=== PATIENT | female | born 1970 | race American Indian/Alaskan Native ===

== ENCOUNTER 2016-12-07 17:26 | Observation (INO) | payer MEDICAID, OTHER ==
[2016-12-07 17:27] VITALS: BMI 64.0
--- NOTE | 2016-12-07 18:14 | C.PDOC ---
History Of Present Illness 46 year old patient, with a past medical history of hypertension, unknown cardiac disease. and hyperlipidemia, presents to the ED complaining of intermittent chest pain and pressure moving across her chest. Patient also complains of associated symptoms of headache and dizziness. She notes she had similar symptoms about a year ago. Patient denies any fever, nausea, vomiting, or shortness of breath. Time Seen by Provider: 12/07/16 17:43 Chief Complaint (Nursing): Chest Pain History Per: Patient History/Exam Limitations: no limitations Onset/Duration Of Symptoms: Intermittent Episodes Current Symptoms Are (Timing): Still Present Context: Other Severity: Mild Pain Scale Rating Of: 3 Quality: Pressure, "Pain" Alleviating Factors: None Recent travel outside of the [place]: No Past Medical History Reviewed: Historical Data, Nursing Documentation, Vital Signs Vital Signs: Last Vital Signs Temp 98.3 F 12/07/16 17:35 Pulse 91 H 12/07/16 18:00 Resp 20 12/07/16 17:35 BP 159/84 H 12/07/16 17:35 Pulse Ox 98 12/07/16 18:19 - Medical History PMH: HTN, Hyperlipidemia Surgical History: Cholecystectomy - [facility] Procedures ASSISTANCE WITH RESPIRATORY VENTILATION, 24-96 HRS, CPAP (04/02/16) EXCISION OF LEFT FOOT SKIN, EXTERNAL APPROACH (04/02/16) Family History: States: Unknown Family Hx - Social History Hx Tobacco Use: No Hx Alcohol Use: No Hx Substance Use: No - Immunization History Hx Tetanus Toxoid Vaccination: Yes Hx Influenza Vaccination: Yes Hx Pneumococcal Vaccination: Yes Review Of Systems Except As Marked, All Systems Reviewed And Found Negative. Constitutional: Negative for: Fever Cardiovascular: Positive for: Chest Pain Respiratory: Negative for: Shortness of Breath Gastrointestinal: Negative for: Nausea, Vomiting Neurological: Positive for: Headache, Dizziness Physical Exam - Physical Exam Appears: Non-toxic, No Acute Distress Skin: Warm, Dry Head: Atraumatic, Normacephalic Eye(s): bilateral: Normal Inspection, PERRL, EOMI Oral Mucosa: Moist Neck: Normal ROM, Supple Chest: Symmetrical Cardiovascular: Rhythm Regular Respiratory: Normal Breath Sounds, No Rales, No Rhonchi, No Wheezing Gastrointestinal/Abdominal: Soft, No Tenderness, Other (obese) Back: Normal Inspection, No CVA Tenderness Extremity: Normal ROM, No Calf Tenderness, No Deformity, Swelling, Other ( severe lymphodema in bilateral legs(baseline)) Neurological/Psych: Oriented x3, Normal Motor, Normal Sensation ED Course And Treatment - Laboratory Results Result Diagrams: 12/07/16 19:30 12/07/16 18:40 Lab Interpretation: No Acute Changes ECG: Interpreted By Me, Viewed By Me ECG Rhythm: Sinus Rhythm ECG Interpretation: Normal, No Acute Changes Rate From EC (bpm) O2 Sat by Pulse Oximetry: 98 (room air) Pulse Ox Interpretation: Normal - Radiology CXR: Interpreted by Me CXR Interpretation: Yes: No Acute Disease (no change from 08/2016) Reevaluation Time: 19:51 Reassessment Condition: Improved (Patient remains comfortable in ED.) - Physician Consult Information Time Consulting Physician Contacted: 19:51 Physician Contacted: Emma Pierce Outcome Of Conversation: Patient with multiple cardiac risk factors to be admitted for chest pain observation. Medical Decision Making Medical Decision Making: Plan: * EKG * Labs * Chest x-ray Disposition - Disposition Disposition: HOSPITALIZED Disposition Time: 19:53 Condition: STABLE - POA Present On Arrival: None - Clinical Impression Clinical Impression: Chest pain - Scribe Statement The provider has reviewed the documentation as recorded by the Scribe Hollie Vasquez Provider Attestation: All medical record entries made by the Scribe were at my direction and personally dictated by me. I have reviewed the chart and agree that the record accurately reflects my personal performance of the history, physical exam, medical decision making, and the department course for this patient. I have also personally directed, reviewed, and agree with the discharge instructions and disposition.
[2016-12-07 19:05] LABS: CHLORIDE 107 mmol/L (98-107); POTASSIUM 3.9 mmol/L (3.6-5.2); SODIUM 137 mmol/L (132-148)
[2016-12-07 19:07] LABS: BILIRUBIN,TOTAL 0.6 mg/dL (0.2-1.3); CARBON DIOXIDE 23 mmol/L (22-30); GFR AFRICAN-AMERICAN > 60
[2016-12-07 19:08] LABS: ALB/GLOB RATIO 0.8 (1.0-2.1); ALKALINE PHOSPHATASE 111 U/L (38-126); ALT/SGPT 15 U/L (9-52); AST/SGOT 25 U/L (14-36); BLOOD UREA NITROGEN 11 mg/dL (7-17); CALCIUM 8.5 mg/dl (8.6-10.4); GLUCOSE,RANDOM 97 mg/dL (65-105); TOTAL PROTEIN 7.6 g/dL (6.3-8.3)
[2016-12-07 19:37] LABS: BASO % 0.4 % (0.0-2.0); EOS # 0.3 K/uL (0.0-0.7); EOS % 3.3 % (0.0-4.0); LYMPH # 2.4 K/uL (1.0-4.3); LYMPH % 29.5 % (20.0-40.0); MEAN CELL VOLUME 80.2 fL (81.0-99.0); MEAN CORPUSCULAR HEMOGLOBIN 25.4 pg (27.0-31.0); MEAN CORPUSCULAR HGB CONC 31.6 g/dL (33.0-37.0); MEAN PLATELET VOLUME 7.8 fL (7.2-11.7); MONO # 0.7 K/uL (0.0-0.8); MONO % 8.5 % (0.0-10.0); NRBC % 0.1 % (0.0-2.0); RED CELL DISTRIBUTION WIDTH 15.1 % (11.5-14.5)
[2016-12-08] MEDS: (Novolog) Insulin Aspart, Recombinant 100 u/ml 10 ml vial SC SCH ×4 (07:48→22:53)
--- NOTE | 2016-12-08 09:40 | RAD ---
PROCEDURE: CHEST RADIOGRAPH, 1 VIEW HISTORY: chest pain COMPARISON: 08/28/2016 FINDINGS: LUNGS: Mild venous congestion. Right hilar prominence. Prominent bibasilar breast shadows. PLEURA: No pneumothorax or pleural fluid seen. CARDIOVASCULAR: Normal. OSSEOUS STRUCTURES: No significant abnormalities. VISUALIZED UPPER ABDOMEN: Normal. OTHER FINDINGS: None. IMPRESSION: Mild venous congestion. Right hilar prominence. Prominent bibasilar breast shadows.
[2016-12-08] MEDS: Enoxaparin 40 mg Syringe SC SCH (10:11)
--- NOTE | 2016-12-08 22:45 | CP.PCM.CON ---
History of Present Illness - History of Present Illness History of Present Illness: 46 y/o woman who presents with CP > off and on for 6months to a year recently worsening > Described as aching, pinching, stabbing > No chest heaviness or diaphoresis > off and on quality lasting seconds at a time > Located in central upper chest, L. upper chest > No fevers, chills, GI/ complaints Overall she is morbidly obese: limited in activity do to same, is independent with ADLs and attends few hours of adult day care M-F PMHX: Morbid obesity, chronic LE lymphedema B/L, ALYSA, HTN, DM, LIPIDS Cardiac Hx: Patient s/p Cath Jun 2015 Right Radial Access/6F Normal Coronaries Normal EF of 75%, EDP 18 PSHX: Gall bladder SOCHX: No Tobacco, ETOH or substance abuse ROS: Chronic LE intermittent edema chronic recurrent chest pains Obesity associated dyspnea All 12 systems reviewed and negative except for that mentioned in HPI and above Review of Systems - Constitutional Constitutional: As Per HPI Past Patient History - Infectious Disease Hx of Infectious Diseases: None - Past Medical History & Family History Past Medical History?: Yes - Past Social History Smoking Status: Never Smoked - CARDIAC Hx Cardiac Disorders: Yes Hx Hypertension: Yes - PULMONARY Hx Respiratory Disorders: No - NEUROLOGICAL Hx Neurological Disorder: Yes Hx Dizziness: Yes - HEENT Hx HEENT Problems: No - RENAL Hx Chronic Kidney Disease: No - ENDOCRINE/METABOLIC Hx Endocrine Disorders: Yes Hx Diabetes Mellitus Type 2: Yes - HEMATOLOGICAL/ONCOLOGICAL Hx Blood Disorders: No - INTEGUMENTARY Hx Dermatological Problems: Yes Hx Cellulitis: Yes - MUSCULOSKELETAL/RHEUMATOLOGICAL Hx Musculoskeletal Disorders: Yes Hx Back Pain: Yes Hx Falls: No Other/Comment: Bilateral leg edema - GASTROINTESTINAL Hx Gastrointestinal Disorders: No - GENITOURINARY/GYNECOLOGICAL Hx Genitourinary Disorders: No - PSYCHIATRIC Hx Substance Use: No - SURGICAL HISTORY Hx Cholecystectomy: Yes - ANESTHESIA Hx Anesthesia: Yes Hx Anesthesia Reactions: No Hx Malignant Hyperthermia: No Has any member of the family had a problem w/ anesthesia?: No Meds Allergies/Adverse Reactions: Allergies Allergy/AdvReac Type Severity Reaction Status Date / Time No Known Allergies Allergy Verified 12/07/16 17:43 - Medications Medications: Current Medications Aspirin (Aspirin Chewable) 81 mg PO DAILY [facility] Last Admin: 12/08/16 10:11 Dose: 81 mg Carvedilol (Coreg) 25 mg PO DAILY [facility] Last Admin: 12/08/16 10:12 Dose: 25 mg Enoxaparin Sodium (Lovenox) 40 mg SC DAILY [facility] Last Admin: 12/08/16 10:11 Dose: 40 mg Furosemide (Lasix) 40 mg PO DAILY [facility] Last Admin: 12/08/16 10:11 Dose: 40 mg Hydralazine HCl (Apresoline) 50 mg PO DAILY [facility] Last Admin: 12/08/16 10:11 Dose: 50 mg Insulin Aspart (Novolog) 1 unit SC [facility] PRN Reason: Protocol Last Admin: 12/08/16 17:03 Dose: Not Given Isosorbide Mononitrate (Imdur) 30 mg PO DAILY [facility] Lisinopril (Zestril) 20 mg PO DAILY [facility] Last Admin: 12/08/16 10:12 Dose: 20 mg Metformin HCl (Glucophage) 500 mg PO BID [facility] Last Admin: 12/08/16 17:40 Dose: 500 mg Pneumococcal Polyvalent Vaccine (Pneumovax 23 Vaccine) 0.5 ml IM .ONCE ONE Stop: 12/11/16 14:01 Physical Exam - Constitutional Appears: No Acute Distress, Older Than Stated Age, Other (morbidly obese) - Head Exam Head Exam: ATRAUMATIC, NORMAL INSPECTION, NORMOCEPHALIC - Eye Exam Eye Exam: EOMI, Normal appearance, PERRL - ENT Exam ENT Exam: Mucous Membranes Moist - Neck Exam Neck exam: Positive for: Normal Inspection - Respiratory Exam Respiratory Exam: Clear to Auscultation Bilateral. absent: Rales, Rhonchi, Wheezes - Cardiovascular Exam Cardiovascular Exam: REGULAR RHYTHM, +S1, +S2. absent: Diastolic murmur, Gallop , JVD, +S4, Systolic Murmur - GI/Abdominal Exam GI & Abdominal Exam: Soft. absent: Guarding - Extremities Exam Additional comments: Chronic venous stasis changes, lymhedema B/L LE's - Neurological Exam Neurological exam: Alert, Oriented x3 - Psychiatric Exam Psychiatric exam: Normal Affect, Normal Mood Results - Vital Signs Recent Vital Signs: Last Vital Signs Temp 98.5 F 12/08/16 17:10 Pulse 87 12/08/16 17:10 Resp 20 12/08/16 17:10 BP 157/85 H 12/08/16 17:10 Pulse Ox 99 12/08/16 17:10 - Labs Result Diagrams: 12/07/16 19:30 12/07/16 18:40 Labs: Laboratory Results - last 24 hr 12/08/16 12/08/16 12/08/16 03:01 06:26 11:27 POC Glucose (mg/dL) 94 Total Creatine Kinase 79 88 CK-MB (Mass) 0.23 0.27 Troponin I, Quant 0.0230 < 0.0120 12/08/16 12/08/16 12/08/16 11:48 16:44 21:55 POC Glucose (mg/dL) 101 92 89 Total Creatine Kinase CK-MB (Mass) Troponin I, Quant - EKG Data EKG Interpreted by: Other (No acute ischemic changes) EKG shows normal: Sinus rhythm - Imaging and Cardiology Chest x-ray Status: Image reviewed by me (No congestion or infiltrates) Assessment & Plan - Assessment and Plan (Free Text) Assessment: Morbidly obese woman with secondary HTN, BDLN DM, venous stasis, ALYSA and lymphedema presetns with chest pain. * I have reviewed the EKG which shows no ischenic changes * I have reviewed the echo which was done 12/08/16: Showing normal LVEF and wall motion, mild MR, TR and grade 2 diastolic dysfunction * She has had normal cardiac cath 1 year ago * current admission she has ruled out for any ACS * Labs are overall wnl except for mild reduced MCV, 1+ hematuria * I feel her sx's are musculoskeletal and non-cardiac * BP is acceptable although on 3 medications * Her LE edema is in part venous stasis and lymphedema: suggest wound care eval and ongoing follow-up with podiatry 1. Continue Medications: and DVT prophylaxis 2. Nightly CPAP 3. No further cardiac work-up is planned. 4. See med suggestions below. No Known Allergies Allergy (Verified 12/07/16 17:43) Aspirin (Aspirin Chewable) 81 mg PO DAILY [facility] Last Admin: 12/08/16 10:11 Dose: 81 mg Carvedilol (Coreg) 25 mg PO DAILY [facility] Last Admin: 12/08/16 10:12 Dose: 25 mg Enoxaparin Sodium (Lovenox) 40 mg SC DAILY [facility] Last Admin: 12/08/16 10:11 Dose: 40 mg Furosemide (Lasix) 40 mg PO DAILY [facility] Last Admin: 12/08/16 10:11 Dose: 40 mg -------------------> Suggest increase to 60 BID and monitor lytes. Hydralazine HCl (Apresoline) 50 mg PO DAILY [facility]--------------------> Suggest BID dosing Last Admin: 12/08/16 10:11 Dose: 50 mg Isosorbide Mononitrate (Imdur) 30 mg PO DAILY [facility] Lisinopril (Zestril) 20 mg PO DAILY [facility] Last Admin: 12/08/16 10:12 Dose: 20 mg D?C planning from cardiac standpoint.
--- NOTE | 2016-12-08 23:17 | CARD ---
APPROVED REPORT EKG Measurement Heart [id number] <Conclusion> Normal sinus rhythm Possible Left atrial enlargement Borderline ECG
--- NOTE | 2016-12-08 23:39 | HP ---
HISTORY OF PRESENT ILLNESS: This is a 46-year-old morbidly obese - Citizen Of [place] female with history of severe lymphedema with bilateral lower extremity elephantiasis. Presented to Emergency Room with symptoms of chest pain that have been intermittent for 2 days prior to this admission. The patient was evaluated in the Emergency Room and admitted to telemetry floor for further management. The patient admits that she had previous similar symptoms, for which she had cardiac catheterization through the radial artery more than [address] Velez. The patient denied to have any symptoms associated with her chest pain. ALLERGIES: No known allergy. HOME MEDICATIONS: Imdur 120 mg daily, carvedilol 6.25 mg twice a day, Lasix 40 mg daily, lisinopril 20 mg daily, metformin 500 mg twice a day, hydralazine 50 mg twice a day. SOCIAL HISTORY: No history of smoking, ETOH or substance abuse. FAMILY HISTORY: Noncontributory. PAST MEDICAL HISTORY: Again, hypertension, type 2 diabetes mellitus, severe lymphedema of bilateral lower extremities. ASSESSMENT: 1. Chest pain, rule out myocardial infarction. 2. Hypertension. 3. Type 2 diabetes mellitus. PLAN: Continue current medications and management . The patient is to follow recommendation of the calender worker helper and we will resume patient's home medications. Emma Pierce MD cc: [phone] TT: 12/08/2016 23:38:13 ln MTDD
--- NOTE | 2016-12-09 01:29 | CARD ---
APPROVED REPORT EXAM: Two-dimensional and M-mode echocardiogram with Doppler and color Doppler. Other Information Quality : FairRhythm : NSR INDICATION Chest Pain RISK FACTORS Hypertension Obesity Diabetes M-Mode DIMENSIONS RVDd1.91 (2.1-3.2cm)Left Atrium (MM)4.06 (2.5-4.0cm) IVSd0.86 (0.7-1.1cm)Aortic Root2.81 (2.2-3.7cm) LVDd4.76 (4.0-5.6cm)Aortic Cusp Exc.1.76 (1.5-2.0cm) PWd0.94 (0.7-1.1cm)FS (%) 28 % LVDs3.44 (2.0-3.8cm)LVEF (%)54 (>50%) Aortic Valve AoV Peak Btfzdnni435.1cm/Daniel Peak GR.9mmHg Mitral Valve MV E Flgphehe66.6cm/sMV A Uxiikyow99.5cm/sE/A ratio1.0 TDI E/Lateral E'0.0E/Medial E'0.0 Tricuspid Valve TR Peak Ibxyjmig314dr/sTR Peak Gr.[id number] LEFT VENTRICLE The left ventricle is normal size. There is normal left ventricular wall thickness. Left ventricle systolic function is low normal with Ejection Fraction of 50-55%. There is normal LV segmental wall motion. The left ventricular diastolic function is normal. No left ventricle thrombus noted on this study. RIGHT VENTRICLE The right ventricle is normal size. The right ventricular systolic function is normal. ATRIA The left atrium is borderline dilated. The right atrium size is normal. AORTIC VALVE The aortic valve is mildlymildly thickened. The aortic valve is trileaflet. No aortic regurgitation is present. There is no aortic valvular stenosis. There is no aortic valvular vegetation. MITRAL VALVE The mitral valve is normal in structure. There is no evidence of mitral valve prolapse. There is no mitral valve stenosis. Mitral regurgitation is mild. TRICUSPID VALVE The tricuspid valve is normal in structure. There is trace to mild tricuspid regurgitation. Right ventricular systolic pressure is estimated at less than 30 mmHg. There is no pulmonary hypertension. There is no tricuspid valve prolapse or vegetation. PULMONIC VALVE The pulmonic valve is not well visualized. There is no pulmonic valvular regurgitation. GREAT VESSELS The aortic root is normal in size. The IVC is normal in size and collapses >50% with inspiration. PERICARDIAL EFFUSION There is no pericardial effusion. There is no pleural effusion. <Conclusion> The left ventricle is normal size. Left ventricle systolic function is low normal with Ejection Fraction of 50-55%. The left ventricular diastolic function is normal. The right ventricle is normal size. The right ventricular systolic function is normal. The left atrium is borderline dilated. The right atrium size is normal. Mitral regurgitation is mild. There is trace to mild tricuspid regurgitation.
[2016-12-09] MEDS: (Novolog) Insulin Aspart, Recombinant 100 u/ml 10 ml vial SC SCH ×2 (08:30→11:45)
[2016-12-09 08:32] VITALS: PULSE 76; RESP 18; TEMP 98.1; O2SAT 100
[2016-12-09] MEDS: Enoxaparin 40 mg Syringe SC SCH (10:29)
[2016-12-09 10:33] VITALS: BP 112/64
--- NOTE | 2016-12-09 17:03 | CP.PCM.PN ---
Subjective - Date & Time of Evaluation Date of Evaluation: 12/09/16 Time of Evaluation: 11:00 - Subjective Subjective: Alert, awake, obese, NAD. Objective - Vital Signs/Intake and Output Vital Signs (last 24 hours): Temp Pulse Resp BP Pulse Ox 98.1 F 76 18 112/64 100 12/09/16 07:30 12/09/16 07:30 12/09/16 07:30 12/09/16 10:30 12/09/16 07:30 - Medications Medications: Current Medications Aspirin (Aspirin Chewable) 81 mg PO DAILY [facility] Last Admin: 12/09/16 10:30 Dose: 81 mg Carvedilol (Coreg) 25 mg PO DAILY [facility] Last Admin: 12/09/16 10:30 Dose: 25 mg Enoxaparin Sodium (Lovenox) 40 mg SC DAILY [facility] Last Admin: 12/09/16 10:29 Dose: 40 mg Furosemide (Lasix) 40 mg PO Q12H [facility] Hydralazine HCl (Apresoline) 50 mg PO Q12 [facility] Last Admin: 12/09/16 12:30 Dose: Not Given Insulin Aspart (Novolog) 1 unit SC [facility] PRN Reason: Protocol Last Admin: 12/09/16 11:45 Dose: Not Given Isosorbide Mononitrate (Imdur) 30 mg PO DAILY [facility] Last Admin: 12/09/16 10:00 Dose: Not Given Lisinopril (Zestril) 20 mg PO DAILY [facility] Last Admin: 12/09/16 10:30 Dose: 20 mg Metformin HCl (Glucophage) 500 mg PO BID [facility] Last Admin: 12/09/16 10:29 Dose: 500 mg Pneumococcal Polyvalent Vaccine (Pneumovax 23 Vaccine) 0.5 ml IM .ONCE ONE Stop: 12/11/16 14:01 Assessment and Plan - Assessment and Plan (Free Text) Assessment: Patient is seen and examined. Alert and orientedx3, NAD. Denies sob or chest pains. Cleared by DR Cash, italian teacher, incresed hydralazine and lasix to BID. all meds refilled for 1 month supply. D/W DR Pierce, discharge plan for today, advised follow up with PMD IN 1 week.
--- NOTE | 2016-12-09 20:55 | DS ---
REASON FOR ADMISSION: This is a 46-year-old female with a history of multiple medic al problems including morbid who was admitted for chest pain. COURSE OF HOSPITALIZATION: The patient was admitted to the telemetry floor and myocardial infarction was ruled out by negative cardiac enzymes. The patient had a cardiology consultation done by Dr. Nikhil todd. The patient had cardiac catheterization done before by Dr. Vanegas's group and the patient was cleared for discharge by cardiology to continue her current medications. ASSESSMENT: 1. Noncardiac chest pain, likely musculoskeletal. 2. Hypertension. 3. Type 2 diabetes mellitus. PLAN: Follow up with cardiology, Dr. Vanegas, as well as primary care physician. Summer Aniya Pierce MD cc: [phone] TT: 12/09/2016 20:54:45 geoffrey
[2016-12-11] MEDS ORDERED: Pneumococcal 23-Valent Vaccine IM ONE (14:00)
== END 2016-12-09 16:00 | disposition home or self-care (01) ==
LOC: C.ER 17:26 → C.9E 19:53 → C.6T 22:07
PROVIDERS: ADMIT Internal Medicine; ATTEND Internal Medicine
DX: R07.9 Chest pain, unspecified (principal); I10 Essential (primary) hypertension; E78.5 Hyperlipidemia, unspecified; E11.9 Type 2 diabetes mellitus without complications; Z79.84 Long term (current) use of oral hypoglycemic drugs
CPT/HCPCS: 36415; 71010; 80053; 82948; 83880; 84484; 85025; 85378; 93005; 93306; 99285; G0378; J1650

== ENCOUNTER 2017-01-15 11:07 | Inpatient (IN) | payer MEDICAID ==
[2017-01-15 11:07] VITALS: BMI 64.0
--- NOTE | 2017-01-15 11:28 | C.PDOC ---
History Of Present Illness 46-YEAR-OLD FEMALE, PRESENTS TO THE EMERGENCY DEPARTMENT WITH COMPLAINTS OF SWELLING AND REDNESS TO RIGHT LEG X 3 DAYS. NO TRAUMA, FEVER, NV CHILLS. RECENT DC BUT PT NONCOMPLIANT W MEDS PMHX: Morbid obesity, chronic LE lymphedema B/L, ALYSA, HTN, DM, LIPIDS Cardiac Hx: Patient s/p Cath Jun 2015 Right Radial Access/6F Normal Coronaries Normal EF of 75%, EDP 18 PSHX: Gall bladder EXAM NAD NONTOXIC SKIN +CELLULITIS R INNER LOWER THIGH W LOCAL INDURATION. EXT OBESE; CHRONIC LYMPHEDEMA BL, NO GROSS ASYMM Time Seen by Provider: 01/15/17 11:26 Chief Complaint (Nursing): Lower Extremity Problem/Injury History Per: Patient History/Exam Limitations: no limitations Onset/Duration Of Symptoms: Days Severity: Moderate Past Medical History Reviewed: Historical Data, Nursing Documentation, Vital Signs Vital Signs: Last Vital Signs Temp 99.1 F 01/15/17 11:13 Pulse 100 H 01/15/17 11:13 Resp 18 01/15/17 11:13 BP 134/75 01/15/17 11:13 Pulse Ox 97 01/15/17 14:39 - Medical History PMH: HTN, Hyperlipidemia Denies: Chronic Kidney Disease Surgical History: Cholecystectomy - [facility] Procedures ASSISTANCE WITH RESPIRATORY VENTILATION, 24-96 HRS, CPAP (04/02/16) EXCISION OF LEFT FOOT SKIN, EXTERNAL APPROACH (04/02/16) Family History: States: No Known Family Hx - Social History Hx Tobacco Use: No Hx Alcohol Use: No Hx Substance Use: No - Immunization History Hx Tetanus Toxoid Vaccination: Yes Hx Influenza Vaccination: Yes Hx Pneumococcal Vaccination: Yes Review Of Systems Except As Marked, All Systems Reviewed And Found Negative. Constitutional: Negative for: Fever, Chills Cardiovascular: Negative for: Chest Pain Respiratory: Negative for: Shortness of Breath Musculoskeletal: Positive for: Other (SWELL AND REDNESS R LEG) Neurological: Negative for: Weakness, Numbness Physical Exam - Physical Exam Appears: Non-toxic, No Acute Distress Skin: Other ( +CELLULITIS R INNER LOWER THIGH W LOCAL INDURATION. ) Head: Atraumatic, Normacephalic Eye(s): bilateral: Normal Inspection, PERRL Nose: Normal Oral Mucosa: Moist Lips: Normal Appearing Neck: Normal ROM Cardiovascular: Rhythm Regular, No Murmur Respiratory: Normal Breath Sounds, No Accessory Muscle Use Extremity: Other (OBESE; CHRONIC LYMPHEDEMA BL, NO GROSS ASYMM) Neurological/Psych: Oriented x3, Normal Speech ED Course And Treatment - Laboratory Results Result Diagrams: 01/15/17 13:49 01/15/17 13:49 Interpretation Of Abnormal: NEW SHIFT CBC COMPARED TO PRIOR O2 Sat by Pulse Oximetry: 97 Progress - Re-Evaluation Re-evaluation Note: 01/15/17 14:41 D/W PMD WILL ADMIT - Data Reviewed Data Reviewed: Lab, Old records - Continuity of Care Discussed patient case with:: Patient, PMD Disposition Counseled Patient/Family Regarding: Studies Performed, Diagnosis - Disposition Disposition: HOSPITALIZED Disposition Time: 14:41 Condition: STABLE - POA Present On Arrival: None - Clinical Impression Clinical Impression: Cellulitis, Morbid obesity - Scribe Statement The provider has reviewed the documentation as recorded by the Scribe (Axel Franco) All medical record entries made by the Scribe were at my direction and personally dictated by me. I have reviewed the chart and agree that the record accurately reflects my personal performance of the history, physical exam, medical decision making, and the department course for this patient. I have also personally directed, reviewed, and agree with the discharge instructions and disposition. Decision To Admit - Pt Status Changed To: Hospital Disposition Of: Observation - . Bed Request Type: Regular Admitting Physician: Emma Pierce Patient Diagnosis: Cellulitis, Morbid obesity
[2017-01-15] MEDS ORDERED: ceFAZolin IV 1 gm in Dextrose 1 GM/50 ML BAG IVPB ONE (12:46)
[2017-01-15 13:41] LABS: VENOUS BLOOD GAS BASE EXCESS 4.5 mmol/L (0.0-2.0); VENOUS BLOOD GAS PCO2 46 mmHg (40-60); VENOUS BLOOD PH 7.42 (7.32-7.43)
[2017-01-15 14:00] LABS: BASO % 0.4 % (0.0-2.0); EOS % 0.5 % (0.0-4.0); HEMATOCRIT 32.8 % (34.0-47.0); LYMPH # 1.1 K/uL (1.0-4.3); LYMPH % 12.7 % (20.0-40.0); MEAN CELL VOLUME 79.1 fL (81.0-99.0); MEAN CORPUSCULAR HEMOGLOBIN 25.2 pg (27.0-31.0); MEAN CORPUSCULAR HGB CONC 31.8 g/dL (33.0-37.0); MEAN PLATELET VOLUME 8.1 fL (7.2-11.7); MONO # 0.9 K/uL (0.0-0.8); MONO % 10.1 % (0.0-10.0); RED CELL DISTRIBUTION WIDTH 15.4 % (11.5-14.5); WHITE BLOOD COUNT 8.9 K/uL (4.8-10.8)
[2017-01-15 14:03] LABS: CHLORIDE 99 mmol/L (98-107); SODIUM 137 mmol/L (132-148)
[2017-01-15 14:04] LABS: POTASSIUM 3.4 mmol/L (3.6-5.2)
[2017-01-15] MEDS ORDERED: ceFAZolin 1 gm FROZEN Premix 1 GM/50 ML ML IVPB ONE (14:05)
[2017-01-15 14:06] LABS: GFR AFRICAN-AMERICAN > 60
[2017-01-15 14:07] LABS: BLOOD UREA NITROGEN 8 mg/dL (7-17); CALCIUM 7.9 mg/dl (8.6-10.4); CARBON DIOXIDE 26 mmol/L (22-30); GLUCOSE,RANDOM 93 mg/dL (65-105)
[2017-01-15] MEDS: (Novolog) Insulin Aspart, Recombinant 100 u/ml 10 ml vial SC SCH (21:26)
[2017-01-16] MEDS: (Novolog) Insulin Aspart, Recombinant 100 u/ml 10 ml vial SC SCH ×4 (08:51→23:18)
[2017-01-16] MEDS: Saccharomyces Boulardi 250 mg Cap PO SCH ×3 (10:11→17:56)
[2017-01-16] MEDS: Enoxaparin 40 mg Syringe SC SCH (10:11)
[2017-01-16] MEDS: Clotrimazole/Betamethasone Cream(15 gm) EXT SCH (10:12)
[2017-01-16 12:05] LABS: CHLORIDE 97 mmol/L (98-107); SODIUM 139 mmol/L (132-148)
[2017-01-16 12:06] LABS: POTASSIUM 3.5 mmol/L (3.6-5.2)
[2017-01-16 12:07] LABS: GFR AFRICAN-AMERICAN > 60
[2017-01-16 12:08] LABS: BLOOD UREA NITROGEN 10 mg/dL (7-17); CARBON DIOXIDE 29 mmol/L (22-30); GLUCOSE,RANDOM 95 mg/dL (65-105)
[2017-01-16 12:09] LABS: CALCIUM 8.6 mg/dl (8.6-10.4)
--- NOTE | 2017-01-16 15:25 | VASCLAB ---
PROCEDURE: Lower Extremity Venous Duplex Exam. HISTORY: Cellulitis of rt leg PRIORS: None. TECHNIQUE: Bilateral common femoral, femoral, popliteal and posterior tibial, peroneal and great saphenous veins were evaluated. Flow was assessed with color Doppler, compressibility, assessment of phasic flow and augmentation response. Report prepared by JACOB Elizalde, RVT FINDINGS: RIGHT: 1. Common Femoral Vein: 1.1. Compressibility - Fully compressible: Thrombus - None : Flow - Phasic: Augmentation -Normal: Reflux - None. 2. Femoral Vein: 2.1. Compressibility - Fully compressible: Thrombus - None : Flow - Phasic: Augmentation -Normal: Reflux - None. 3. Popliteal Vein: 3.1. Compressibility - Fully compressible: Thrombus - None : Flow - Phasic: Augmentation -Normal: Reflux - None. 4. Posterior Tibial Vein: 4.1. Compressibility - : Thrombus - : Flow - : Augmentation -: Reflux - . 5. Peroneal Vein: 5.1. Compressibility - : Thrombus - : Flow - : Augmentation -: Reflux - . 6. Great Saphenous Vein: 6.1. Compressibility - Fully compressible: Thrombus - None: Flow - Phasic: Augmentation - Normal: Reflux - None. LEFT: 1. Common Femoral Vein: 1.1. Compressibility - Fully compressible: Thrombus - None: Flow - Phasic: Augmentation -Normal: Reflux - None. 2. Femoral Vein: 2.1. Compressibility - Fully compressible: Thrombus - None: Flow - Phasic: Augmentation -Normal: Reflux - None. 3. Popliteal Vein: 3.1. Compressibility - : Thrombus - : Flow - : Augmentation -: Reflux - . 4. Posterior Tibial Vein: 4.1. Compressibility - : Thrombus - : Flow - : Augmentation -: Reflux - . 5. Peroneal Vein: 5.1. Compressibility - Fully compressible: Thrombus - None: Flow - Phasic: Augmentation -Normal: Reflux - None. 6. Great Saphenous Vein: 6.1. Compressibility - Fully compressible: Thrombus - None: Flow - Phasic: Augmentation - Normal: Reflux - None. OTHER FINDINGS: Right: Due to swelling in the calf, the right peroneal and posterior tibial vein are not visualized. Left: Due to swelling in the calf, the left peroneal and posterior tibial vein are not visualized. Technically difficult study due to patient body habitus. IMPRESSION: Right: No evidence of deep or superficial vein thrombosis of the right lower extremity. Normal valve function noted of the right side. Left: No evidence of deep or superficial vein thrombosis of the left lower extremity. Normal valve function noted of the left side.
--- NOTE | 2017-01-17 06:45 | HP ---
HISTORY OF PRESENT ILLNESS: This is a 46-year-old female with history of multiple medical problems including severe lymphedema, type 2 diabetes mellitus, hypertension was admitted for cellulitis of the right lower extremity. The patient was evaluated in the emergency room and due to redness and tenderness of the right lower extremity, the patient was started on IV antibiotics and admitted for further management. REVIEW OF SYSTEMS: Other review of systems is negative. ALLERGIES: NO KNOWN ALLERGY. HOME MEDICATIONS: Include metformin 500 mg twice a day, hydralazine 50 mg twice a day, lisinopril 20 mg daily, Imdur 60 mg daily, Lasix 40 mg daily and carvedilol 12.5 mg twice a day. PAST MEDICAL HISTORY: Hypertension, type 2 diabetes mellitus and severe lymphedema. SOCIAL HISTORY: No history of smoking, EtOH or substance abuse. FAMILY HISTORY: Noncontributory. PHYSICAL EXAMINATION: GENERAL: The patient is not in any cardiopulmonary distress at the time of this examination. VITAL SIGNS: Blood pressure 136/85, temperature 98.2, respiratory rate 20 and pulse 70. HEENT: Pupils equal, reactive to light. Normal appearing mucosa of the conjunctivae, oropharyngeal, and nasal membrane mucosa. NECK: Supple. No JVD. No carotid bruit. No lymph nodes. No thyromegaly. CHEST AND LUNGS: Bilateral symmetrical expansion. Good air exchange. No rales. No rhonchi. CARDIOVASCULAR SYSTEM: PMI not localized. S1 and S2. No additional sounds. ABDOMEN: Normoactive bowel sounds. No tenderness. No organomegaly. No masses. EXTREMITIES: Severe lymphedema of both lower extremities with redness and tenderness of lower part of the right lower extremity. DIRECTOR SECURITY RISK MANAGEMENT: Alert, awake, and oriented x2. No neurological deficit could be appreciated. ASSESSMENT: 1. Cellulitis of the right lower extremity. 2. Severe lymphedema and elephantiasis of both lower extremities. 3. Hypertension. 4. Type 2 diabetes mellitus. PLAN: Resume the patient's home medication and start the patient on clindamycin, IV antibiotics with probiotic. A venous Doppler was ordered. Emma Pierce MD FAIZAN
[2017-01-17] MEDS: (Novolog) Insulin Aspart, Recombinant 100 u/ml 10 ml vial SC SCH ×4 (08:00→21:42)
[2017-01-17] MEDS: Saccharomyces Boulardi 250 mg Cap PO SCH ×3 (09:58→17:50)
[2017-01-17] MEDS: Enoxaparin 40 mg Syringe SC SCH (10:46)
[2017-01-17] MEDS: Clotrimazole/Betamethasone Cream(15 gm) EXT SCH (10:46)
[2017-01-17] MEDS: Potassium Chloride 20 mEq ER Tab PO SCH (11:51)
--- NOTE | 2017-01-17 14:30 | CP.PCM.CON ---
History of Present Illness - History of Present Illness History of Present Illness: INFECTIOUS DISEASE CONSULT; HPI; 46-YEAR-OLD FEMALE, PRESENTS TO THE EMERGENCY DEPARTMENT WITH COMPLAINTS OF SWELLING AND REDNESS TO RIGHT LEG X 3 DAYS. NO TRAUMA, FEVER, NV CHILLS. RECENT DC BUT PT NONCOMPLIANT W MEDS.. PATIENT POOR HISTORIAN. UNABLE TO GIVE DETAILS OF ANTIBIOTICS/RECENT TREATMENT. PMHX: Morbid obesity, chronic LE lymphedema B/L, ALYSA, HTN, DM, LIPIDS Cardiac Hx: Patient s/p Cath Jun 2015 Right Radial Access/6F Normal Coronaries Normal EF of 75%, EDP 18 PSHX: Gall bladder S/P CHOLECYSTECTOMY - [facility] Procedures ASSISTANCE WITH RESPIRATORY VENTILATION, 24-96 HRS, CPAP (04/02/16) EXCISION OF LEFT FOOT SKIN, EXTERNAL APPROACH (04/02/16) Family History: States: No Known Family Hx - Social History Hx Tobacco Use: No Hx Alcohol Use: No Hx Substance Use: No Review of Systems - Constitutional Constitutional: absent: Chills, Fever - EENT Nose/Mouth/Throat: absent: Mouth Lesions - Cardiovascular Cardiovascular: Dyspnea on Exertion. absent: Chest Pain - Respiratory Respiratory: absent: Cough, Hemoptysis - Gastrointestinal Gastrointestinal: absent: Abdominal Pain, Diarrhea, Nausea, Vomiting - Genitourinary Genitourinary: absent: Dysuria - Integumentary Integumentary: Skin Ulcer, Swelling (RT. LE >LT.LE) - Neurological Neurological: absent: Headaches - Hematologic/Lymphatic Hematologic: As Per HPI Past Patient History - Infectious Disease Hx of Infectious Diseases: None - Past Medical History & Family History Past Medical History?: Yes - Past Social History Smoking Status: Never Smoked - CARDIAC Hx Hypertension: Yes - PULMONARY Hx Respiratory Disorders: No - NEUROLOGICAL Hx Neurological Disorder: Yes Hx Dizziness: Yes - HEENT Hx HEENT Problems: No - RENAL Hx Chronic Kidney Disease: No - ENDOCRINE/METABOLIC Hx Diabetes Mellitus Type 2: Yes - HEMATOLOGICAL/ONCOLOGICAL Hx Blood Disorders: No - INTEGUMENTARY Hx Dermatological Problems: Yes Hx Cellulitis: Yes - MUSCULOSKELETAL/RHEUMATOLOGICAL Hx Musculoskeletal Disorders: Yes Hx Back Pain: Yes Hx Falls: No Other/Comment: Bilateral leg edema - GASTROINTESTINAL Hx Gastrointestinal Disorders: No - GENITOURINARY/GYNECOLOGICAL Hx Genitourinary Disorders: No - PSYCHIATRIC Hx Substance Use: No - SURGICAL HISTORY Hx Cholecystectomy: Yes - ANESTHESIA Hx Anesthesia: Yes Hx Anesthesia Reactions: No Hx Malignant Hyperthermia: No Meds Allergies/Adverse Reactions: Allergies Allergy/AdvReac Type Severity Reaction Status Date / Time No Known Allergies Allergy Verified 01/15/17 11:17 - Medications Medications: Current Medications Acetaminophen (Tylenol 325mg Tab) 650 mg PO Q6 PRN PRN Reason: Pain, moderate (4-7) Last Admin: 01/17/17 03:58 Dose: 650 mg Betamethasone/Clotrimazole (Lotrisone) 0 gm EXT DAILY [facility] Last Admin: 01/17/17 10:46 Dose: 1 applic Carvedilol (Coreg) 12.5 mg PO Q12H [facility] Last Admin: 01/17/17 10:00 Dose: 12.5 mg Enoxaparin Sodium (Lovenox) 40 mg SC DAILY [facility] Last Admin: 01/17/17 10:46 Dose: 40 mg Furosemide (Lasix) 40 mg IVP Q12H [facility] Hydralazine HCl (Apresoline) 50 mg PO Q12 [facility] Last Admin: 01/17/17 09:58 Dose: 50 mg Clindamycin Phosphate 600 mg/ (Sodium Chloride) 54 mls @ 100 mls/hr IVPB Q8 [facility] Last Admin: 01/17/17 05:38 Dose: 100 mls/hr Insulin Aspart (Novolog) 0 unit SC ACHS [facility] PRN Reason: Protocol Last Admin: 01/17/17 11:45 Dose: Not Given Isosorbide Mononitrate (Imdur) 30 mg PO DAILY [facility] Last Admin: 01/17/17 09:58 Dose: 30 mg Metformin HCl (Glucophage) 500 mg PO BID [facility] Last Admin: 01/17/17 09:58 Dose: 500 mg Potassium Chloride (K-Dur 20 Meq Er Tab) 40 meq PO DAILY [facility] Last Admin: 01/17/17 11:51 Dose: 40 meq Saccharomyces Boulardii (Florastor) 250 mg PO TID [facility] Last Admin: 01/17/17 09:58 Dose: 250 mg Physical Exam - Constitutional Appears: No Acute Distress - Head Exam Head Exam: NORMAL INSPECTION - Eye Exam Eye Exam: EOMI, PERRL - ENT Exam ENT Exam: Normal Oropharynx - Neck Exam Neck exam: Positive for: Normal Inspection - Respiratory Exam Respiratory Exam: Decreased Breath Sounds, NORMAL BREATHING PATTERN - Cardiovascular Exam Cardiovascular Exam: REGULAR RHYTHM, +S1, +S2 - GI/Abdominal Exam GI & Abdominal Exam: Hypoactive Bowel Sounds, Soft (OBESE,). absent: Organomegaly - Extremities Exam Extremities exam: Positive for: pedal edema (CHRONIC LYMPHEDEMA BILATERAL LOWER EXTREMITIES WITH CELLULITIS RIGHT LOWER LEG AND INNER THIGH.). Negative for: calf tenderness Additional comments: CHRONIC STASIS DERMATITIS CHANGES. - Neurological Exam Neurological exam: Alert (CELLS THEN GO IN THAT), Oriented x3 - Psychiatric Exam Psychiatric exam: Normal Mood - Skin Skin Exam: Dry (SKIN.), Normal Color, Warm Results - Vital Signs Recent Vital Signs: Last Vital Signs Temp 98.5 F 01/17/17 07:50 Pulse 82 01/17/17 07:50 Resp 22 01/17/17 07:50 BP 144/78 01/17/17 10:00 Pulse Ox 96 01/17/17 07:50 - Labs Result Diagrams: 01/15/17 13:49 01/16/17 11:31 Assessment & Plan (1) Cellulitis Status: Acute (2) Bilateral lower extremity edema Status: Chronic (3) Hypertension Status: Acute (4) Morbid obesity Status: Acute - Assessment and Plan (Free Text) Plan: PLAN PANCULTURES mrsa SCREEN. CONTINUE iv CLINDAMYCIN 600 EVERY 8 HOURLY 01/15 aDD iv VANCOMYCIN 1 G EVERY 12 HOURLY 01/17/17 STAPH AND MRSA COVERAGE. F/U vANCO TROUGH ON THE FOURTH DOSE AND MAINTAIN BETWEEN 10 AND 20. fOLLOW-UP RENAL FUNCTIONS CLOSELY. AND iv AZACTAM 2 G EVERY 8 HOURLY.01/17/17 CONTINUE LOCAL WOUND CARE PER WOUND CARE NURSE.
[2017-01-17 17:09] VITALS: RESP 20
[2017-01-17] MEDS: Aztreonam 2 GM in Sodium Chloride 0.9% 100 ML IVPB SCH (21:43)
[2017-01-18] MEDS: Aztreonam 2 GM in Sodium Chloride 0.9% 100 ML IVPB SCH ×3 (05:00→21:02)
[2017-01-18 07:28] LABS: BASO % 0.1 % (0.0-2.0); EOS # 0.2 K/uL (0.0-0.7); EOS % 2.3 % (0.0-4.0); HEMATOCRIT 29.7 % (34.0-47.0); LYMPH # 2.1 K/uL (1.0-4.3); LYMPH % 22.4 % (20.0-40.0); MEAN CELL VOLUME 78.4 fL (81.0-99.0); MEAN CORPUSCULAR HEMOGLOBIN 25.5 pg (27.0-31.0); MEAN CORPUSCULAR HGB CONC 32.5 g/dL (33.0-37.0); MEAN PLATELET VOLUME 8.2 fL (7.2-11.7); MONO # 0.9 K/uL (0.0-0.8); MONO % 9.8 % (0.0-10.0); RED CELL DISTRIBUTION WIDTH 15.4 % (11.5-14.5); WHITE BLOOD COUNT 9.4 K/uL (4.8-10.8)
[2017-01-18 07:52] LABS: CHLORIDE 99 mmol/L (98-107); POTASSIUM 3.8 mmol/L (3.6-5.2); SODIUM 138 mmol/L (132-148)
[2017-01-18 07:54] LABS: GFR AFRICAN-AMERICAN > 60
[2017-01-18 07:55] LABS: ALB/GLOB RATIO 0.7 (1.0-2.1); ALKALINE PHOSPHATASE 108 U/L (38-126); ALT/SGPT 20 U/L (9-52); AST/SGOT 21 U/L (14-36); BILIRUBIN,DIRECT 0.4 mg/dL (0.0-0.4); BILIRUBIN,TOTAL 0.5 mg/dL (0.2-1.3); BLOOD UREA NITROGEN 14 mg/dL (7-17); CALCIUM 8.2 mg/dl (8.6-10.4); CARBON DIOXIDE 25 mmol/L (22-30); GLUCOSE,RANDOM 99 mg/dL (65-105); TOTAL PROTEIN 7.3 g/dL (6.3-8.3)
[2017-01-18] MEDS: (Novolog) Insulin Aspart, Recombinant 100 u/ml 10 ml vial SC SCH ×4 (07:59→21:17)
--- NOTE | 2017-01-18 09:00 | PN ---
DATE: 01/17/2017 SUBJECTIVE: Pain of the right lower extremity and blood culture is also showing gram positive cocci. PHYSICAL EXAMINATION VITAL SIGNS: The patient is afebrile with temperature 98.3, respiratory rate 20, pulse 79, and blood pressure 124/85. HEENT: Pupils equal and reactive to light. Normal-appearing mucosa of the conjunctivae, oropharynx and nasal membrane mucosa. NECK: Supple. No JVD. No carotid bruit. No lymph node. No thyromegaly. CHEST AND LUNGS: Bilateral symmetrical expansion. Good air exchange. No rales, no rhonchi. CARDIOVASCULAR: PMI not localized. S1 and S2. No additional sounds. ABDOMEN: Normoactive bowel sounds. No tenderness. No organomegaly. No masses. EXTREMITIES: Bilateral lower extremity venous stasis and with severe lymphedema with redness and hardness of the skin and swelling. CENTRAL NERVOUS SYSTEM: Alert, awake, and oriented x2. No neurological deficit could be appreciated. Doppler scan of the lower extremity was done and it ruled out DVT. ASSESSMENT: 1. Cellulitis of the right extremity. 2. Severe lymphedema of both lower extremities. 3. Hypertension. 4. Type 2 diabetes mellitus. 5. Bacteremia. PLAN: ID consult and follow recommendations. Dr. Paige Saavedra met with the patient. Emma Pierce MD MTDD
[2017-01-18] MEDS: Saccharomyces Boulardi 250 mg Cap PO SCH ×3 (10:44→17:10)
[2017-01-18] MEDS: Potassium Chloride 20 mEq ER Tab PO SCH (10:44)
[2017-01-18] MEDS: Enoxaparin 40 mg Syringe SC SCH (10:44)
[2017-01-18] MEDS: Clotrimazole/Betamethasone Cream(15 gm) EXT SCH (10:46)
--- NOTE | 2017-01-18 15:07 | RAD ---
PROCEDURE: CHEST RADIOGRAPH, 1 VIEW HISTORY: verify right PICC COMPARISON: 12/07/2016. FINDINGS: The right PICC line terminates in the SVC. LUNGS: The lungs are well inflated and clear. PLEURA: No pneumothorax or pleural fluid seen. CARDIOVASCULAR: Normal. OSSEOUS STRUCTURES: No significant abnormalities. VISUALIZED UPPER ABDOMEN: Normal. OTHER FINDINGS: None. IMPRESSION: Right PICC line terminates in the SVC. No acute findings.
--- NOTE | 2017-01-19 02:33 | PN ---
DATE: 01/18/2017 SUBJECTIVE: The patient is seen today on 01/18/2017. She is not on nay cardiopulmonary distress and patient has no fever or no chills. PHYSICAL EXAMINATION: VITAL SIGNS: Blood pressure is 119/67, temperature 97.9, respiratory rate 20 and pulse 85. HEENT: Pupils equal and reactive to light. Normal-appearing mucosa of the conjunctivae, oropharynx and nasal mucosa. NECK: Supple. No JVD. No carotid bruit. No lymph node. No thyromegaly. CHEST AND LUNGS: Bilateral symmetrical expansion. Good air exchange. CARDIOVASCULAR: PMI not localized. S1 and S2. No additional sounds. ABDOMEN: Normoactive bowel sounds. No tenderness. No organomegaly. No masses. EXTREMITIES: No cyanosis, no clubbing. There is a swelling of both lower extremities with severe lymphedema/elephantiasis. Decreased redness and tenderness on the right lower extremity. CENTRAL NERVOUS SYSTEM: Alert, awake, and oriented x2. Moves all extremities equally. ASSESSMENT: 1. Cellulitis of the right lower extremity. 2. Hypertension. 3. Type 2 diabetes mellitus. PLAN: Continue current medications and we will give Lasix IV for swelling and monitor electrolytes and follow the recommendations of Infectious disease delivery consultant regarding the bacteremia. The patient had poor IV access and she had a PICC line inserted today. Emma Pierce MD cc: [email or web address]
[2017-01-19] MEDS: Aztreonam 2 GM in Sodium Chloride 0.9% 100 ML IVPB SCH ×3 (05:34→20:23)
[2017-01-19] MEDS: (Novolog) Insulin Aspart, Recombinant 100 u/ml 10 ml vial SC SCH ×4 (08:04→22:05)
[2017-01-19] MEDS: Potassium Chloride 20 mEq ER Tab PO SCH (09:41)
[2017-01-19] MEDS: Saccharomyces Boulardi 250 mg Cap PO SCH ×3 (09:41→18:03)
[2017-01-19] MEDS: Enoxaparin 40 mg Syringe SC SCH (09:42)
[2017-01-19] MEDS: Clotrimazole/Betamethasone Cream(15 gm) EXT SCH (09:45)
--- NOTE | 2017-01-19 20:07 | PN ---
DAILY PROGRESS NOTE DATE: 01/19/2017 SUBJECTIVE: The patient is seen today on 01/19/2017. She has less pain on the right lower extremity. PHYSICAL EXAMINATION: VITAL SIGNS: Blood pressure is 122/72, temperature is 98.1, respiratory rate is 20, and pulse is 80. HEENT: Pupils are equal and reactive to light. Normal appearing mucosa of the conjunctivae, oropharyngeal, and nasal membrane mucosa. NECK: Supple. No JVD. No carotid bruit. No lymph node. No thyromegaly. CHEST AND LUNGS: Bilateral symmetrical expansion. Decreased air exchange of both lower lung [place]. CARDIOVASCULAR: PMI not localized. S1 and S2. No additional sounds. ABDOMEN: Normoactive bowel sounds. No tenderness. No organomegaly. No masses. EXTREMITIES: Bilateral lower extremity lymphedema with elephantiasis and decreased swelling and redness in the right lower extremity. CENTRAL NERVOUS SYSTEM: Alert, awake, and oriented x2. No neurological deficit could be appreciated. ASSESSMENT: Cellulitis of the right lower extremity, bacteremia, type 2 diabetes mellitus, morbid obesity, and hypertension. PLAN: Continue current medications and IV antibiotics as per infectious disease and we will check the echocardiogram. Emma Pierce MD
--- NOTE | 2017-01-19 22:41 | CP.PCM.PN ---
Subjective - Date & Time of Evaluation Date of Evaluation: 01/19/17 Time of Evaluation: 22:41 - Subjective Subjective: CHIEF COMPLAINTS TODAY : afebrile, Anxious to go home. Complains of pain right lower extremity. ROS. HEENT : N. Resp : No cough, wheezing ,pleuritic CP ,or hemoptysis Cardio : No anginal CP, PND, orthopnea, palpitation GI : No abd.pain, n/v ,diarrhea or GI bleeding . BOX TRUCK DRIVER : No headache, vertigo, focal deficit. Musculoskel : No joint swelling , Derm : No rash Psych : Normal affect. Ext : BILATERAL LOWER EXTREMITY ELEPHANTIASIS WITH CELLULITIS AND WARMTH RIGHT LOWER EXTREMITY , NO calf pain . PEDAL PULSES ARE NOT PALPABLE, FOOT APPEARS TO BE WARM. PE. Pt. is alert awake in no distress. V.S As noted in the chart Head ,ear nose,throat and eyes : Normal. Neck : Supple with normal carotids. Lungs: Clear air entry. Heart : S1 & S2 normal with S4. No murmur. Abd : Soft non tender with normal bowel sounds. Neuro : Moves all ext. with no localized deficit. Ext : .Non tender calves +CELLULITIS R INNER LOWER THIGH W LOCAL INDURATION. EXT OBESE; CHRONIC LYMPHEDEMA BL,PEDAL PULSES DISTANT Derm : No rashes or decubitus ulcer. LABS/RADIOLOGY: BLOOD CULTURE 01/15/17 +VE GRAM-POSITIVE COCCI anaerobic vial ( negative for staph aureus/staph coagulase negative by PNA fish. identification pending. Objective - Vital Signs/Intake and Output Vital Signs (last 24 hours): Temp Pulse Resp BP Pulse Ox 98.1 F 80 20 124/81 98 01/19/17 15:00 01/19/17 15:00 01/19/17 15:00 01/19/17 22:02 01/19/17 15:00 Intake and Output: 01/19/17 01/20/17 18:59 06:59 Intake Total 764 Balance 764 - Medications Medications: Current Medications Acetaminophen (Tylenol 325mg Tab) 650 mg PO Q6 PRN PRN Reason: Pain, moderate (4-7) Last Admin: 01/17/17 03:58 Dose: 650 mg Betamethasone/Clotrimazole (Lotrisone) 0 gm EXT DAILY [facility] Last Admin: 01/19/17 09:45 Dose: 1 applic Carvedilol (Coreg) 12.5 mg PO Q12H [facility]S [facility]CLUDE 234 BEDS AT THE [facility] Last Admin: 01/19/17 22:02 Dose: 12.5 mg Enoxaparin Sodium (Lovenox) 40 mg SC DAILY [facility] 234 BEDS AT THE [facility] Last Admin: 01/19/17 09:42 Dose: 40 mg Furosemide (Lasix) 40 mg IVP Q12H [facility]CLUDE 234 BEDS AT THE [facility] Last Admin: 01/19/17 18:03 Dose: 40 mg Hydralazine HCl (Apresoline) 50 mg PO Q12 [facility] 234 BEDS AT THE [facility] Last Admin: 01/19/17 21:55 Dose: 50 mg Clindamycin Phosphate 600 mg/ (Sodium Chloride) 54 mls @ 100 mls/hr IVPB Q8 [facility] 234 BEDS AT THE [facility] Last Admin: 01/19/17 14:54 Dose: 100 mls/hr Vancomycin HCl 1,000 mg/ (Sodium Chloride) 250 mls @ 166.6 mls/hr IVPB Q12H [facility]CLUDE 234 BEDS AT THE [facility] Last Admin: 01/19/17 21:45 Dose: 166.6 mls/hr Aztreonam 2 gm/ Sodium (Chloride) 100 mls @ 200 mls/hr IVPB Q8H [facility]CLUDE 234 BEDS AT THE [facility] Last Admin: 01/19/17 20:23 Dose: 200 mls/hr Insulin Aspart (Novolog) 0 unit SC [facility] COUNTS INCLUDE 234 BEDS AT THE [facility] PRN Reason: Protocol Last Admin: 01/19/17 22:05 Dose: Not Given Isosorbide Mononitrate (Imdur) 30 mg PO DAILY [facility] 234 BEDS AT THE [facility] Last Admin: 01/19/17 09:41 Dose: 30 mg Metformin HCl (Glucophage) 500 mg PO BID [facility]CLUDE 234 BEDS AT THE [facility] Last Admin: 01/19/17 18:03 Dose: 500 mg Potassium Chloride (K-Dur 20 Meq Er Tab) 40 meq PO DAILY [facility] 234 BEDS AT THE [facility] Last Admin: 01/19/17 09:41 Dose: 40 meq Saccharomyces Boulardii (Florastor) 250 mg PO TID [facility]CLUDE 234 BEDS AT THE [facility] Last Admin: 01/19/17 18:03 Dose: 250 mg - Labs Labs: 01/18/17 06:44 01/18/17 06:44 Assessment and Plan (1) Gram-positive cocci bacteremia Assessment & Plan: blood cultures 01/15 positive for gram-positive cocci in clusters in anaerobic bottle negative for staph aureus/ staph coagulase negative by PNA fish. iDENTIFICATION PENDING. cONTINUE iv VANCOMYCIN, iv CLINDAMYCIN, AND iv aZACTAM FOR NOW. aWAIT CULTURES TO ADJUST ANTIBIOTICS. Status: Acute (2) Cellulitis Assessment & Plan: CONTINUE iv CLINDAMYCIN 600 EVERY 8 HOURLY 01/15 continue iv VANCOMYCIN 1 G EVERY 12 HOURLY 01/17/17 STAPH AND MRSA COVERAGE. F/U vANCO TROUGH ON THE FOURTH DOSE AND MAINTAIN BETWEEN 10 AND 20. fOLLOW-UP RENAL FUNCTIONS CLOSELY. continue iv AZACTAM 2 G EVERY 8 HOURLY.01/17/17 CONTINUE LOCAL WOUND CARE PER WOUND CARE NURSE. Status: Acute (3) Bilateral lower extremity edema Assessment & Plan: PATIENT HAS BILATERAL LYMPHEDEMA WITH SUPERINFECTED CELLULITIS.. cONTINUE iv ANTIBIOTICS Status: Chronic (4) Hypertension Status: Acute (5) Morbid obesity Status: Acute (6) Chronic acquired lymphedema Status: Acute
[2017-01-20] MEDS: Aztreonam 2 GM in Sodium Chloride 0.9% 100 ML IVPB SCH ×2 (04:51→14:01)
[2017-01-20] MEDS: (Novolog) Insulin Aspart, Recombinant 100 u/ml 10 ml vial SC SCH ×2 (07:45→12:22)
[2017-01-20] MEDS: Enoxaparin 40 mg Syringe SC SCH (09:47)
[2017-01-20] MEDS: Saccharomyces Boulardi 250 mg Cap PO SCH ×2 (09:48→14:01)
[2017-01-20] MEDS: Potassium Chloride 20 mEq ER Tab PO SCH (09:49)
[2017-01-20] MEDS: Clotrimazole/Betamethasone Cream(15 gm) EXT SCH (09:54)
[2017-01-20 13:33] VITALS: O2SAT 98
--- NOTE | 2017-01-20 13:55 | CP.PCM.PN ---
Subjective - Date & Time of Evaluation Date of Evaluation: 01/20/17 Time of Evaluation: 13:55 - Subjective Subjective: CHIEF COMPLAINTS TODAY : afebrile, S/P PICC LINE Complains of pain right lower extremity. ROS. HEENT : N. Resp : No cough, wheezing ,pleuritic CP ,or hemoptysis Cardio : No anginal CP, PND, orthopnea, palpitation GI : No abd.pain, n/v ,diarrhea or GI bleeding . SAWMILL MANAGER : No headache, vertigo, focal deficit. Musculoskel : No joint swelling , Derm : No rash Psych : Normal affect. Ext : BILATERAL LOWER EXTREMITY ELEPHANTIASIS WITH CELLULITIS AND WARMTH RIGHT LOWER EXTREMITY , NO calf pain . PEDAL PULSES ARE NOT PALPABLE, FOOT APPEARS TO BE WARM. PE. Pt. is alert awake in no distress. V.S As noted in the chart Head ,ear nose,throat and eyes : Normal. Neck : Supple with normal carotids. Lungs: Clear air entry. Heart : S1 & S2 normal with S4. No murmur. Abd : Soft non tender with normal bowel sounds. Neuro : Moves all ext. with no localized deficit. Ext : .Non tender calves +CELLULITIS R INNER LOWER THIGH W LOCAL INDURATION. EXT OBESE; CHRONIC LYMPHEDEMA BL,PEDAL PULSES DISTANT Derm : No rashes or decubitus ulcer. LABS/RADIOLOGY: BLOOD CULTURE 01/15/17 + VE CORYNEBACTERIUM SPECIES/ PEPTOSTREPTOCOCCUS Objective - Vital Signs/Intake and Output Vital Signs (last 24 hours): Temp Pulse Resp BP Pulse Ox 98.1 F 84 20 152/82 H 98 01/20/17 08:00 01/20/17 08:00 01/20/17 08:00 01/20/17 09:48 01/20/17 08:00 Intake and Output: 01/20/17 01/20/17 06:59 18:59 Intake Total 650 Balance 650 - Medications Medications: Current Medications Acetaminophen (Tylenol 325mg Tab) 650 mg PO Q6 PRN PRN Reason: Pain, moderate (4-7) Last Admin: 01/17/17 03:58 Dose: 650 mg Betamethasone/Clotrimazole (Lotrisone) 0 gm EXT DAILY [facility] Last Admin: 01/20/17 09:54 Dose: 1 applic Carvedilol (Coreg) 12.5 mg PO Q12H [facility] Last Admin: 01/20/17 09:48 Dose: 12.5 mg Enoxaparin Sodium (Lovenox) 40 mg SC DAILY [facility] Last Admin: 01/20/17 09:47 Dose: 40 mg Furosemide (Lasix) 40 mg IVP Q12H [facility] Last Admin: 01/20/17 06:26 Dose: 40 mg Hydralazine HCl (Apresoline) 50 mg PO Q12 [facility] Last Admin: 01/20/17 09:49 Dose: 50 mg Clindamycin Phosphate 600 mg/ (Sodium Chloride) 54 mls @ 100 mls/hr IVPB Q8 [facility] Last Admin: 01/20/17 05:01 Dose: 100 mls/hr Vancomycin HCl 1,000 mg/ (Sodium Chloride) 250 mls @ 166.6 mls/hr IVPB Q12H [facility] Last Admin: 01/20/17 10:30 Dose: 166.6 mls/hr Aztreonam 2 gm/ Sodium (Chloride) 100 mls @ 200 mls/hr IVPB Q8H [facility] Last Admin: 01/20/17 04:51 Dose: 200 mls/hr Insulin Aspart (Novolog) 0 unit SC ACHS [facility] PRN Reason: Protocol Last Admin: 01/20/17 12:22 Dose: Not Given Isosorbide Mononitrate (Imdur) 30 mg PO DAILY [facility] Last Admin: 01/20/17 09:48 Dose: 30 mg Metformin HCl (Glucophage) 500 mg PO BID [facility] Last Admin: 01/20/17 09:48 Dose: 500 mg Potassium Chloride (K-Dur 20 Meq Er Tab) 40 meq PO DAILY [facility] Last Admin: 01/20/17 09:49 Dose: 40 meq Saccharomyces Boulardii (Florastor) 250 mg PO TID [facility] Last Admin: 01/20/17 09:48 Dose: 250 mg - Labs Labs: 01/18/17 06:44 01/18/17 06:44 Assessment and Plan (1) Gram-positive cocci bacteremia Assessment & Plan: BLOOD CULTURE POSITIVE FOR PEPTOSTREPTOCOCCUS/CORYNEBACTERIUM SPECIES CASE DISCUSSED WITH PIE DOUGH ROLLER MS MAS. dc iv aZACTAM dc iv VANCOMYCIN dc iv CLINDAMYCIN START iv ROCEPHIN 2 G ONCE A DAY DAILY FOR 2 WEEKS. CONTINUE BY MOUTH CLINDAMYCIN 600 MG 3 TIMES A DAY X FOR 7 DAYS 4 BLOOD CULTURES POSITIVE FOR pEPTOSTREPTOCOCCUS. WATCH CLOSELY FOR DIARRHEA / COLITIS PROBIOTIC AT AT BEDTIME. FOLLOW-UP REPEAT BLOOD CULTURES NEXT WEEK. pATIENT TO BE MONITORED CLOSELY BY pmd IN SUBACUTE REHABILITATION. pATIENT TO BE FOLLOWED WHILE IN HOSPITAL. Status: Acute (2) Cellulitis Status: Acute (3) Bilateral lower extremity edema Status: Chronic (4) Hypertension Status: Acute (5) Morbid obesity Status: Acute (6) Chronic acquired lymphedema Status: Acute
[2017-01-20 16:12] VITALS: BP 151/73; PULSE 90; TEMP 98.5
--- NOTE | 2017-01-20 17:26 | CP.PCM.PN ---
Subjective - Date & Time of Evaluation Date of Evaluation: 01/20/17 Time of Evaluation: 11:00 - Subjective Subjective: Alert, awake, no acute distress. Objective - Vital Signs/Intake and Output Vital Signs (last 24 hours): Temp Pulse Resp BP Pulse Ox 98.5 F 90 20 151/73 H 98 01/20/17 15:00 01/20/17 15:00 01/20/17 15:00 01/20/17 15:00 01/20/17 15:00 Intake and Output: 01/20/17 01/20/17 06:59 18:59 Intake Total 650 764 Balance 650 764 - Labs Labs: 01/18/17 06:44 01/18/17 06:44 Assessment and Plan - Assessment and Plan (Free Text) Assessment: Patient with morbid obesity, admitted with right leg cellulitis, alert and orientedx3, no sob or chest pains, no acute distress. Being discharge to [facility] rehab for 2 more weeks of iv antibiotics and oral clindamycin as per DR Haile. D/W DR Pierce, agreed with the plan. PICC line in place, working well.
--- NOTE | 2017-01-21 12:33 | CARD ---
APPROVED REPORT EXAM: Two-dimensional and M-mode echocardiogram with Doppler and color Doppler. Other Information Quality : GoodRhythm : NSR INDICATION Dyspnea Chest Pain RISK FACTORS Hypertension Obesity Diabetes 2D DIMENSIONS IVSd1.3 (0.7-1.1cm)LVDd4.4 (3.9-5.9cm) PWd1.5 (0.7-1.1cm)IVSs1.5 (0.8-1.2cm) LVDs3.5 (2.5-4.0cm)FS (%) 20.3 % PWs1.7 (0.8-1.2cm)LVEF (%)41.8 (>50%) Aortic Valve AoV Peak Iloubfgx216.8cm/Daniel Peak GR.10mmHgLVOT Peak Dohekdxy720.9cm/s Mitral Valve MV E Lknkzdqk354.8cm/sMV A Vkjdvpay826.7cm/sE/A ratio1.1 TDI E/Lateral E'0.0E/Medial E'0.0 Pulmonary Valve PV Peak Lajhjupj997.4cm/sPV Peak Grad.8mmHg Tricuspid Valve TR Peak Kififhjs547dt/sTR Peak Gr.57ikVlRYNX11tyGe LEFT VENTRICLE The left ventricle is normal size. There is normal left ventricular wall thickness. The left ventricular function is normal. The left ventricular ejection fraction is within the normal range. No regional wall motion abnormalities noted. The left ventricular diastolic function is normal. No left ventricle thrombus noted on this study. There is no ventricular septal defect visualized. There is no left ventricular aneurysm. There is no mass noted in the left ventricle. RIGHT VENTRICLE The right ventricle is normal size. There is normal right ventricular wall thickness. The right ventricular systolic function is normal. ATRIA The left atrium size is normal. The right atrium size is normal. The interatrial septum is intact with no evidence for an atrial septal defect. AORTIC VALVE The aortic valve is normal in structure. No aortic regurgitation is present. There is no aortic valvular stenosis. There is no aortic valvular vegetation. MITRAL VALVE The mitral valve is normal in structure. There is no evidence of mitral valve prolapse. There is no mitral valve stenosis. Mitral regurgitation is mild. TRICUSPID VALVE The tricuspid valve is normal in structure. There is mild tricuspid regurgitation. There is no tricuspid valve prolapse or vegetation. There is no tricuspid valve stenosis. PULMONIC VALVE The pulmonary valve is normal in structure. There is no pulmonic valvular regurgitation. There is no pulmonic valvular stenosis. GREAT VESSELS The aortic root is normal in size. The ascending aorta is normal in size. The IVC is normal in size and collapses >50% with inspiration. <Conclusion> The left ventricular ejection fraction is within the normal range. The left ventricular diastolic function is normal. Mitral regurgitation is mild. There is mild tricuspid regurgitation.
--- NOTE | 2017-01-21 19:28 | DS ---
REASON FOR ADMISSION: This is a 46-year-old morbidly obese female, who was admitted for cellulitis of the right lower extremity. COURSE OF HOSPITALIZATION: Patient was admitted to medical floor and she was started on IV antibiotics. Patient had an ID consultation done by Dr. gAustín Haile. The patient had a blood culture positive for Corynebacterium species and Peptococcus species. Patient was continued on IV antibiotics, both aztreonam and vancomycin and was discharged home. She will be continued on IV antibiotics, both ceftriaxone and clindamycin. Patient had a PICC line and was discharged to senior care. FINAL DIAGNOSES: 1. Cellulitis of the right lower extremity. 2. Severe lymphedema/elephantiasis. 3. Type 2 diabetes mellitus. 4. Morbid obesity. 5. Hypertension. [facility] MD Stan MTDBuddy
== END 2017-01-20 16:25 | DRG 563 ==
LOC: C.ER 11:07 → C.9E 14:42 → C.5T 15:37 → C.3T 01-16 22:30 → OBSVTOIN 01-17 14:14
PROVIDERS: ADMIT Internal Medicine; ATTEND Internal Medicine
PROC: 02HV33Z Insertion of Infusion Device into Superior Vena Cava, Percutaneous Approach (ICD-10-PCS; principal; 2017-01-18)
DX: L03.115 Cellulitis of right lower limb (principal); R78.81 Bacteremia; I10 Essential (primary) hypertension; I89.0 Lymphedema, not elsewhere classified; G47.33 Obstructive sleep apnea (adult) (pediatric); E78.5 Hyperlipidemia, unspecified; E11.9 Type 2 diabetes mellitus without complications; Z91.14 Patient's other noncompliance with medication regimen; Z79.84 Long term (current) use of oral hypoglycemic drugs; K21.9 Gastro-esophageal reflux disease without esophagitis; E66.01 Morbid (severe) obesity due to excess calories; Z68.44 Body mass index [BMI] 60.0-69.9, adult

== ENCOUNTER 2017-02-17 12:32 | Inpatient (IN) | payer MEDICAID ==
[2017-02-17 12:32] VITALS: BMI 64.0
[2017-02-17 13:26] LABS: BASO # 0.1 K/uL (0.0-0.2); BASO % 0.8 % (0.0-2.0); EOS # 0.2 K/uL (0.0-0.7); EOS % 2.3 % (0.0-4.0); HEMATOCRIT 28.4 % (34.0-47.0); LYMPH # 2.1 K/uL (1.0-4.3); MEAN CELL VOLUME 79.9 fL (81.0-99.0); MEAN CORPUSCULAR HEMOGLOBIN 25.5 pg (27.0-31.0); MEAN CORPUSCULAR HGB CONC 31.9 g/dL (33.0-37.0); MONO # 0.7 K/uL (0.0-0.8); MONO % 8.9 % (0.0-10.0); RED CELL DISTRIBUTION WIDTH 16.8 % (11.5-14.5); WHITE BLOOD COUNT 8.1 K/uL (4.8-10.8)
[2017-02-17 13:35] LABS: INR 1.1
--- NOTE | 2017-02-17 13:36 | C.PDOC ---
History Of Present Illness 46 y/o female presents to ED with complaints of chest pain that began approx 1hr PARAOPTOMETRIC. Patient describes pain as sharp and constant, and it is not associated with sob. Patient reports prior similar symptoms, but is unsure of cause. She denies cough, fever, chills, abdominal pain, nausea, vomiting, palpitations. Time Seen by Provider: 02/17/17 12:54 Chief Complaint (Nursing): Chest Pain History Per: Patient History/Exam Limitations: no limitations Onset/Duration Of Symptoms: Days Current Symptoms Are (Timing): Still Present Severity: Moderate Quality: "Pain" Past Medical History Reviewed: Historical Data, Nursing Documentation, Vital Signs Vital Signs: Last Vital Signs Temp 98.4 F 02/20/17 15:00 Pulse 78 02/20/17 16:31 Resp 20 02/20/17 15:00 BP 148/72 02/20/17 19:32 Pulse Ox 97 02/20/17 15:00 - Medical History PMH: HTN, Hyperlipidemia Surgical History: Cholecystectomy - [facility] Procedures ASSISTANCE WITH RESPIRATORY VENTILATION, 24-96 HRS, CPAP (04/02/16) EXCISION OF LEFT FOOT SKIN, EXTERNAL APPROACH (04/02/16) INSERTION OF INFUSION DEV INTO SUP VENA CAVA, PERC APPROACH (01/17/17) Family History: States: No Known Family Hx - Social History Hx Tobacco Use: No Hx Alcohol Use: No Hx Substance Use: No - Immunization History Hx Tetanus Toxoid Vaccination: Yes Hx Influenza Vaccination: Yes Hx Pneumococcal Vaccination: Yes Review Of Systems Except As Marked, All Systems Reviewed And Found Negative. Constitutional: Negative for: Fever, Chills Cardiovascular: Positive for: Chest Pain. Negative for: Palpitations Respiratory: Negative for: Cough, Shortness of Breath Gastrointestinal: Negative for: Vomiting, Abdominal Pain, Diarrhea Skin: Negative for: Rash Physical Exam - Physical Exam Appears: Well, Non-toxic, No Acute Distress, Other (Morbidly obese) Skin: Normal Color, Warm, Dry, No Rash Head: Normacephalic Eye(s): bilateral: Normal Inspection Oral Mucosa: Moist Chest: Symmetrical, No Tenderness Cardiovascular: Rhythm Regular Respiratory: Normal Breath Sounds, No Rales, No Rhonchi, No Wheezing Gastrointestinal/Abdominal: Normal Exam, Bowel Sounds, Soft, No Tenderness Extremity: Normal ROM, No Pedal Edema, No Calf Tenderness Pulses: Left Dorsalis Pedis: Normal, Right Dorsalis Pedis: Normal Neurological/Psych: Oriented x3 ED Course And Treatment - Laboratory Results Result Diagrams: 02/20/17 14:05 02/20/17 14:05 ECG: Interpreted By Me, Viewed By Me (NSR 86bpm, normal axis, T wave inversions III, aVF, no acute ST changes) ECG Interpretation: Abnormal O2 Sat by Pulse Oximetry: 97 (RA) Pulse Ox Interpretation: Normal Progress Note: Blood work, EKG ordered and reviewed. D-dimer elevated, CTA chest ordered. Patient given IV NS bolus, IV fentanyl (due to borderline BP). - Physician Consult Information Physician Contacted: Emma Pierce Outcome Of Conversation: Discussed patient with PMD, who agrees with obs telemetry for chest pain, r/o ACS. Disposition - Disposition Disposition: HOSPITALIZED Disposition Time: 18:01 Condition: STABLE - Clinical Impression Clinical Impression: Chest pain - PA / [employer]INTER [employer]ODY [employer] / Resident Statement MD/DO has examined the patient and agrees with the treatment plan. - Scribe Statement The provider has reviewed the documentation as recorded by the Scribe Og Lopez All medical record entries made by the Scribe were at my direction and personally dictated by me. I have reviewed the chart and agree that the record accurately reflects my personal performance of the history, physical exam, medical decision making, and the department course for this patient. I have also personally directed, reviewed, and agree with the discharge instructions and disposition. Decision To Admit - Pt Status Changed To: Hospital Disposition Of: Inpatient - Admit Certification Admit to Inpatient:: After my assessment, the patient will require hospitalization for at least two midnights. This is because of the severity of symptoms shown, intensity of services needed, and/or the medical risk in this patient being treated as an outpatient. - InPatient: Physician Admission Certification: I certify that this patient requires 2 or more midnights of care for the following reason:: see notes - . Bed Request Type: Telemetry Admitting Physician: Emma Pierce Patient Diagnosis: Chest pain
--- NOTE | 2017-02-17 13:39 | RAD ---
PROCEDURE: CHEST RADIOGRAPH, 1 VIEW HISTORY: Chest pain COMPARISON: 01/18/2017. FINDINGS: LUNGS: There is an apparent opacity in the right hilar and suprahilar region. There is no focal consolidation. PLEURA: No pneumothorax or pleural fluid seen. CARDIOVASCULAR: Normal. OSSEOUS STRUCTURES: No significant abnormalities. VISUALIZED UPPER ABDOMEN: Normal. OTHER FINDINGS: None. IMPRESSION: Apparent opacity in the right hilar and suprahilar region, not completely characterized on this examination. Dedicated PA and lateral radiographs or CT scan of the chest with intravenous contrast would be helpful for further characterization.
[2017-02-17 13:41] LABS: ALB/GLOB RATIO 0.8 (1.0-2.1); ALKALINE PHOSPHATASE 102 U/L (38-126); ALT/SGPT 26 U/L (9-52); AST/SGOT 21 U/L (14-36); BILIRUBIN,TOTAL 0.3 mg/dL (0.2-1.3); BLOOD UREA NITROGEN 13 mg/dL (7-17); CALCIUM 8.5 mg/dl (8.6-10.4); CARBON DIOXIDE 24 mmol/L (22-30); CHLORIDE 107 mmol/L (98-107); GFR AFRICAN-AMERICAN > 60; GLUCOSE,RANDOM 93 mg/dL (65-105); POTASSIUM 3.9 mmol/L (3.6-5.2); SODIUM 139 mmol/L (132-148); TOTAL PROTEIN 6.7 g/dL (6.3-8.3)
[2017-02-17] MEDS ORDERED: Sodium Chloride 0.9% 500 ML IV ONE (15:09)
[2017-02-17 15:59] LABS: RBC URINE 2 /hpf (0-3); URINE BACTERIA RARE (<OCC); URINE BILIRUBIN NEGATIVE (NEGATIVE); URINE BLOOD NEGATIVE (NEGATIVE); URINE COLOR Amber (YELLOW); URINE GLUCOSE (UA) NORMAL (Normal); URINE HYALINE CAST >20 /lpf (0-2); URINE KETONE NEGATIVE (NEGATIVE); URINE LEUKOCYTE ESTERASE TRACE Leu/uL (Negative); URINE PROTEIN 1+ mg/dL (NEGATIVE); URINE UROBILINOGEN NORMAL mg/dL (0.2-1.0); WBC URINE 7 /hpf (0-5)
[2017-02-17] MEDS ORDERED: Iodixanol 320 MG/ML 100 ML BOTTLE IV ONE (16:06)
--- NOTE | 2017-02-17 17:17 | CT ---
PROCEDURE: CT Chest with contrast (Pulmonary Angiogram) HISTORY: Chest pain and shortness of breath, ELEVATED DIMER R/O PE COMPARISON: None available. TECHNIQUE: Axial computed tomography images were obtained of the chest in the pulmonary arterial phase of enhancement. Coronal and sagittal reformatted images were created and reviewed. Intravenous contrast dose: 100 mL Visipaque Radiation dose: Total exam DLP = 519.56 mGy-cm. This CT exam was performed using one or more of the following dose reduction techniques: Automated exposure control, adjustment of the mA and/or kV according to patient size, and/or use of iterative reconstruction technique. FINDINGS: PULMONARY ARTERIES: Please note examination is limited due to extensive beam hardening artifacts from patient body habitus. Allowing for this, there are no filling defects in the central pulmonary arteries to suggest acute pulmonary embolism. Evaluation of the peripheral branches is limited. AORTA: No evidence of aortic dissection. No thoracic aortic aneurysm. LUNGS: The lungs are well inflated without evidence of consolidation or mass. There is linear atelectasis/scarring in the right middle lobe. There is a 4 mm subpleural nodule in the right upper lobe. There is minimal subpleural atelectasis in the left lateral lung base. PLEURAL SPACES: No effusion or pneumothorax. HEART: The heart is normal in size. There is no pericardial effusion. LYMPH NODES: No pathologic lymphadenopathy. BONES, CHEST WALL: No fracture or destructive lesion there is diffuse bone demineralization and multilevel degenerative disc disease. OTHER FINDINGS: Unremarkable. IMPRESSION: 1. Examination is limited due to extensive beam hardening artifacts from patient body habitus. Allowing for this, no central pulmonary embolism, aortic aneurysm or aortic dissection. 2. No lobar pneumonia, pleural effusion or pneumothorax.
[2017-02-17] MEDS: (Novolog) Insulin Aspart, Recombinant 100 u/ml 10 ml vial SC SCH (21:43)
[2017-02-18] MEDS: (Novolog) Insulin Aspart, Recombinant 100 u/ml 10 ml vial SC SCH ×4 (07:29→22:06)
--- NOTE | 2017-02-18 13:58 | CP.PCM.CON ---
History of Present Illness - History of Present Illness History of Present Illness: CC: CHest pain 46 year old female with the following chronic medical problems 1. Morbid obesity 2. HTN 3. Diabetes Mellitus She is admitted to [facility] for chest pain and headache. Past Patient History - Infectious Disease Hx of Infectious Diseases: None - Past Medical History & Family History Past Medical History?: Yes - Past Social History Smoking Status: Never Smoked - CARDIAC Hx Cardiac Disorders: Yes Hx Hypertension: Yes - PULMONARY Hx Respiratory Disorders: No - NEUROLOGICAL Hx Neurological Disorder: Yes Hx Dizziness: Yes - HEENT Hx HEENT Problems: No - RENAL Hx Chronic Kidney Disease: No - ENDOCRINE/METABOLIC Hx Endocrine Disorders: Yes Hx Diabetes Mellitus Type 2: Yes - HEMATOLOGICAL/ONCOLOGICAL Hx Blood Disorders: No - INTEGUMENTARY Hx Dermatological Problems: Yes Hx Cellulitis: Yes - MUSCULOSKELETAL/RHEUMATOLOGICAL Hx Musculoskeletal Disorders: Yes Hx Back Pain: Yes Hx Falls: Yes Other/Comment: Bilateral leg edema - GASTROINTESTINAL Hx Gastrointestinal Disorders: No - GENITOURINARY/GYNECOLOGICAL Hx Genitourinary Disorders: No - PSYCHIATRIC Hx Anxiety: No Hx Substance Use: No - SURGICAL HISTORY Hx Surgeries: Yes Hx Cholecystectomy: Yes - ANESTHESIA Hx Anesthesia: Yes Hx Anesthesia Reactions: No Hx Malignant Hyperthermia: No Has any member of the family had a problem w/ anesthesia?: No Meds Allergies/Adverse Reactions: Allergies Allergy/AdvReac Type Severity Reaction Status Date / Time No Known Allergies Allergy Verified 01/15/17 11:17 - Medications Medications: Current Medications Aspirin (Ecotrin) 81 mg PO DAILY [facility] Last Admin: 02/18/17 13:48 Dose: 81 mg Carvedilol (Coreg) 12.5 mg PO Q12H [facility] Last Admin: 02/18/17 06:35 Dose: 12.5 mg Furosemide (Lasix) 40 mg IVP DAILY [facility] Last Admin: 02/18/17 13:49 Dose: 40 mg Heparin Sodium (Porcine) (Heparin) 5,000 units SC Q12 [facility] Last Admin: 02/18/17 09:38 Dose: 5,000 units Hydralazine HCl (Apresoline) 50 mg PO DAILY [facility] Last Admin: 02/18/17 09:43 Dose: 50 mg Insulin Aspart (Novolog) 0 unit SC ACHS [facility] PRN Reason: Protocol Last Admin: 02/18/17 11:57 Dose: Not Given Isosorbide Mononitrate (Imdur) 30 mg PO DAILY [facility] Last Admin: 02/18/17 09:44 Dose: 30 mg Lisinopril (Zestril) 20 mg PO DAILY [facility] Last Admin: 02/18/17 09:43 Dose: 20 mg Metformin HCl (Glucophage) 500 mg PO BID [facility] Last Admin: 02/18/17 09:37 Dose: 500 mg Pneumococcal Polyvalent Vaccine (Pneumovax 23 Vaccine) 0.5 ml IM .ONCE ONE Stop: 02/20/17 10:01 Physical Exam - Constitutional Appears: Well, Non-toxic, Unkempt - Head Exam Head Exam: ATRAUMATIC, NORMAL INSPECTION - Eye Exam Eye Exam: PERRL. absent: Scleral icterus - ENT Exam ENT Exam: Mucous Membranes Dry, Normal External Ear Exam - Neck Exam Neck exam: Negative for: Lymphadenopathy, Thyromegaly - Respiratory Exam Respiratory Exam: Clear to Auscultation Bilateral, NORMAL BREATHING PATTERN - Cardiovascular Exam Cardiovascular Exam: REGULAR RHYTHM, RRR, +S1, +S2 (Chronic lymphedema dermatitis ). absent: JVD - GI/Abdominal Exam GI & Abdominal Exam: Normal Bowel Sounds. absent: Organomegaly - Extremities Exam Extremities exam: Positive for: pedal edema. Negative for: calf tenderness - Neurological Exam Neurological exam: CN II-XII Intact, Oriented x3 - Psychiatric Exam Psychiatric exam: Anxious, Normal Affect, Normal Mood Results - Vital Signs Recent Vital Signs: Last Vital Signs Temp 98.0 F 02/18/17 07:25 Pulse 75 02/18/17 09:44 Resp 18 02/18/17 07:25 BP 130/71 02/18/17 13:49 Pulse Ox 91 L 02/18/17 07:25 - Labs Result Diagrams: 02/17/17 13:23 02/17/17 13:23 Labs: Laboratory Results - last 24 hr 02/17/17 02/17/17 02/18/17 21:25 22:43 06:09 POC Glucose (mg/dL) 86 Total Creatine Kinase 65 76 CK-MB (Mass) 0.44 0.34 Troponin I, Quant < 0.0120 < 0.0120 02/18/17 02/18/17 06:10 11:31 POC Glucose (mg/dL) 110 96 Total Creatine Kinase CK-MB (Mass) Troponin I, Quant Assessment & Plan - Assessment and Plan (Free Text) Assessment: 46 year old female well known to me with non cardiac chest pain, serial trop is negative and EKG shows no evidence of ishemia HTN is stable when compliant with medications DM is chronic and stable Morbid obesity
[2017-02-19] MEDS: (Novolog) Insulin Aspart, Recombinant 100 u/ml 10 ml vial SC SCH ×4 (07:50→21:58)
[2017-02-19 17:06] VITALS: RESP 20
[2017-02-20] MEDS: (Novolog) Insulin Aspart, Recombinant 100 u/ml 10 ml vial SC SCH ×3 (07:18→17:10)
[2017-02-20] MEDS ORDERED: Pneumococcal 23-Valent Vaccine IM ONE (10:00)
--- NOTE | 2017-02-20 10:12 | HP ---
DATE: 02/18/2017 HISTORY OF PRESENT ILLNESS: She is a 46 years old morbidly obese -[place] female with history of bilateral lower extremity lymphedema secondary to elephantiasis, presented to emergency room with symptoms of chest pain that started on the day of admission. Pain was retrosternal and was not associated with any shortness of breath or palpitation. The patient was sitting down on her bed when the pain started. The patient admitted that she felt that pain before. The patient had a previous cardiac catheterization three times by Dr. Guilherme alberto. The patient denied having shortness of breath, palpitation, or any other symptoms. The patient was evaluated in the Emergency Room and she had also a CTA of the chest that ruled out pulmonary embolism. The patient was admitted and cardiology consult was requested to be done by Dr. Vanegas, who knows the patient. REVIEW OF SYSTEMS: Negative. ALLERGIES: No known allergies. HOME MEDICATIONS: Hydralazine 50 mg daily, hydrochlorothiazide 25 mg daily, lisinopril 20 mg daily, Imdur 60 mg daily, carvedilol 12.5 mg twice a day, metformin 500 mg twice a day. PAST MEDICAL HISTORY: Type 2 diabetes mellitus, hypertension, morbid obesity, lymphedema of both lower extremities. FAMILY HISTORY: Noncontributory. PHYSICAL EXAMINATION GENERAL: The patient is in bed, comfortable at the time of this examination. VITAL SIGNS: Blood pressure 150/85, temperature 98.0, respiratory rate of 20, and pulse 75. HEENT: Pupils equal, reactive to light. Normal-appearing mucosa of the conjunctivae, oropharyngeal, and nasal membrane mucosa. NECK: Supple. No JVD. No carotid bruit. No lymph node. No thyromegaly. CHEST AND LUNGS: Bilateral symmetrical expansion. Good air exchange. No rales, no rhonchi. CARDIOVASCULAR SYSTEM: PMI not localized. S1 and S2. No additional sounds. ABDOMEN: Normoactive bowel sounds. No tenderness. No organomegaly. No masses. EXTREMITIES: No cyanosis. No clubbing. No edema. The patient has +3 lower extremity edema with chronic skin changes secondary to lymphedema. VISUAL EFFECTS EDITOR: Alert, awake, and oriented x2. No neurological deficit could be appreciated. ASSESSMENT: 1. Chest pain, to rule out myocardial infarction. 2. Type 2 diabetes mellitus. 3. Hypertension. 4. Morbid obesity. 5. Lymphedema of both lower extremities. PLAN: We will do cardiac enzymes every 8 hours, cardiology consult, follow recommendations, and we will resume the patient's home medications, Accu-Checks q.i.d. with Novolog coverage as needed. [facility] MD Stan
[2017-02-20 14:10] LABS: BASO # 0.1 K/uL (0.0-0.2); BASO % 0.7 % (0.0-2.0); EOS # 0.2 K/uL (0.0-0.7); EOS % 2.3 % (0.0-4.0); HEMATOCRIT 32.7 % (34.0-47.0); LYMPH # 2.2 K/uL (1.0-4.3); LYMPH % 28.1 % (20.0-40.0); MEAN CELL VOLUME 80.1 fL (81.0-99.0); MEAN CORPUSCULAR HEMOGLOBIN 25.9 pg (27.0-31.0); MEAN CORPUSCULAR HGB CONC 32.3 g/dL (33.0-37.0); MEAN PLATELET VOLUME 8.3 fL (7.2-11.7); MONO # 0.6 K/uL (0.0-0.8); MONO % 7.3 % (0.0-10.0); RED CELL DISTRIBUTION WIDTH 16.6 % (11.5-14.5)
[2017-02-20 14:29] LABS: CHLORIDE 98 mmol/L (98-107); POTASSIUM 3.9 mmol/L (3.6-5.2); SODIUM 142 mmol/L (132-148)
[2017-02-20 14:31] LABS: BILIRUBIN,TOTAL 0.4 mg/dL (0.2-1.3); GFR AFRICAN-AMERICAN > 60
[2017-02-20 14:32] LABS: ALB/GLOB RATIO 0.8 (1.0-2.1); ALKALINE PHOSPHATASE 127 U/L (38-126); ALT/SGPT 24 U/L (9-52); AST/SGOT 30 U/L (14-36); BLOOD UREA NITROGEN 13 mg/dL (7-17); CARBON DIOXIDE 31 mmol/L (22-30); GLUCOSE,RANDOM 102 mg/dL (65-105); TOTAL PROTEIN 8.6 g/dL (6.3-8.3)
[2017-02-20 14:33] LABS: CALCIUM 9.4 mg/dl (8.6-10.4)
--- NOTE | 2017-02-20 15:16 | CP.PCM.PN ---
Subjective - Date & Time of Evaluation Date of Evaluation: 02/20/17 Time of Evaluation: 15:12 - Subjective Subjective: PT SEEN BY DR. DEVI DURING ROUNDS AND CLEARED FOR D/C HOME. NO FURTHER PLANS PER CARDIO NOTES. PT TO RECEIVE PHY THER DURING HER ADULT DAY CARE HOURS (RX GIVEN TO SW TO FAX TO FACILITY). CONTINUE HOME MEDS; ASA OTC. F/U WITH DR. DEVI AND CARDIO OP. SW TO ARRANGE TRANSPORTATION HOME TODAY. NO FURTHER ORDERS. Objective - Vital Signs/Intake and Output Vital Signs (last 24 hours): Temp Pulse Resp BP Pulse Ox 98.3 F 14 L 20 144/71 98 02/20/17 07:25 02/20/17 08:00 02/20/17 07:25 02/20/17 09:19 02/20/17 07:25 - Medications Medications: Current Medications Aspirin (Ecotrin) 81 mg PO DAILY [facility] Last Admin: 02/20/17 09:19 Dose: 81 mg Carvedilol (Coreg) 12.5 mg PO Q12H [facility] Last Admin: 02/20/17 08:02 Dose: 12.5 mg Furosemide (Lasix) 40 mg IVP DAILY [facility] Last Admin: 02/20/17 09:19 Dose: 40 mg Heparin Sodium (Porcine) (Heparin) 5,000 units SC Q12 [facility] Last Admin: 02/20/17 09:19 Dose: 5,000 units Hydralazine HCl (Apresoline) 50 mg PO DAILY [facility] Last Admin: 02/20/17 09:19 Dose: 50 mg Insulin Aspart (Novolog) 0 unit SC ACHS [facility] PRN Reason: Protocol Last Admin: 02/20/17 12:43 Dose: Not Given Isosorbide Mononitrate (Imdur) 30 mg PO DAILY [facility] Last Admin: 02/20/17 09:19 Dose: 30 mg Lisinopril (Zestril) 20 mg PO DAILY [facility] Last Admin: 02/20/17 09:19 Dose: 20 mg Metformin HCl (Glucophage) 500 mg PO BID [facility] Last Admin: 02/20/17 09:19 Dose: 500 mg - Labs Labs: 02/20/17 14:05 02/20/17 14:05 PT 12.2 SECONDS (9.7-12.2) 02/17/17 13:23 INR 1.1 02/17/17 13:23 APTT 26 SECONDS (21-34) 02/17/17 13:23
[2017-02-20 16:14] VITALS: TEMP 98.4; O2SAT 97
[2017-02-20 16:39] VITALS: PULSE 78
[2017-02-20] MEDS ORDERED: Simethicone 80 mg Chewtab PO ONE (19:15)
[2017-02-20 19:33] VITALS: BP 148/72
--- NOTE | 2017-02-21 19:42 | CARD ---
APPROVED REPORT EKG Measurement Heart [id number] IN [id number] [id number] <Conclusion> Normal sinus rhythm Nonspecific T wave abnormality Prolonged QT Abnormal ECG
--- NOTE | 2017-02-22 08:52 | DS ---
REASON FOR ADMISSION: This is a 46 years old female with history of multiple medical problems who was admitted for chest pain. COURSE OF HOSPITALIZATION: The patient was admitted to telemetry floor and she had frequent cardiac enzymes every 8 hours. The patient was admitted to telemetry floor and ID was ruled out by negative cardiac enzymes. The patient had a cardiology consultation done by Dr. Vanegas. All the patient's medications were resumed and the patient was seen by Dr. Velez who is Dr. Garzon associate during this admission and the patient was released to follow with her primary care physician and with her trim carpenter. The patient has +3 edema of both lower extremities. ASSESSMENT AND PLAN: 1. Bilateral lymphedema. 2. Morbid obesity. 3. Hypertension. 4. Type 2 diabetes mellitus. Emma Pierce MD
== END 2017-02-20 21:00 | disposition home or self-care (01) | DRG 143 ==
LOC: C.ER 12:32 → C.9E 18:01 → C.6T 20:09 → OBSVTOIN 02-20 13:47
PROVIDERS: ADMIT Internal Medicine; ATTEND Internal Medicine
DX: R07.9 Chest pain, unspecified (principal); Z68.44 Body mass index [BMI] 60.0-69.9, adult; I10 Essential (primary) hypertension; E66.01 Morbid (severe) obesity due to excess calories; E11.9 Type 2 diabetes mellitus without complications; I89.0 Lymphedema, not elsewhere classified; Z79.84 Long term (current) use of oral hypoglycemic drugs

== ENCOUNTER 2017-03-02 17:11 | Observation (INO) | payer MEDICAID ==
[2017-03-02 17:20] VITALS: BMI 60.4
[2017-03-02 18:21] LABS: BASO # 0.1 K/uL (0.0-0.2); BASO % 0.6 % (0.0-2.0); EOS # 0.2 K/uL (0.0-0.7); EOS % 2.1 % (0.0-4.0); HEMATOCRIT 32.4 % (34.0-47.0); LYMPH # 2.1 K/uL (1.0-4.3); LYMPH % 26.9 % (20.0-40.0); MEAN CELL VOLUME 79.8 fL (81.0-99.0); MEAN CORPUSCULAR HEMOGLOBIN 26.1 pg (27.0-31.0); MEAN CORPUSCULAR HGB CONC 32.7 g/dL (33.0-37.0); MEAN PLATELET VOLUME 7.9 fL (7.2-11.7); MONO # 0.7 K/uL (0.0-0.8); MONO % 8.8 % (0.0-10.0); RED CELL DISTRIBUTION WIDTH 16.1 % (11.5-14.5)
[2017-03-02 18:28] LABS: CHLORIDE 104 mmol/L (98-107)
[2017-03-02 18:29] LABS: POTASSIUM 3.5 mmol/L (3.6-5.2); SODIUM 140 mmol/L (132-148)
--- NOTE | 2017-03-02 18:29 | RAD ---
HISTORY: chest pain COMPARISON: Chest x-ray performed 02/17/17, CTA chest performed 02/17/17 TECHNIQUE: Chest, one view. FINDINGS: Examination limited by habitus and hypoinflation. LUNGS: No focal consolidation. Please note that chest x-ray has limited sensitivity for the detection of pulmonary masses. PLEURA: No significant pleural effusion identified. No definite pneumothorax . CARDIOVASCULAR: Borderline cardiomegaly. OSSEOUS STRUCTURES: No acute osseous abnormality identified. VISUALIZED UPPER ABDOMEN: Unremarkable. OTHER FINDINGS: None. IMPRESSION: Cardiomegaly. No focal consolidation, significant pleural effusion, or definite pneumothorax identified.
[2017-03-02 18:31] LABS: GFR AFRICAN-AMERICAN > 60
[2017-03-02 18:32] LABS: ALB/GLOB RATIO 0.8 (1.0-2.1); ALKALINE PHOSPHATASE 113 U/L (38-126); ALT/SGPT 23 U/L (9-52); AST/SGOT 19 U/L (14-36); BILIRUBIN,TOTAL 0.4 mg/dL (0.2-1.3); BLOOD UREA NITROGEN 11 mg/dL (7-17); CALCIUM 8.7 mg/dl (8.6-10.4); CARBON DIOXIDE 28 mmol/L (22-30); GLUCOSE,RANDOM 102 mg/dL (65-105); TOTAL PROTEIN 8.1 g/dL (6.3-8.3)
[2017-03-02] MEDS ORDERED: Enoxaparin 120 mg Syringe SC STA (20:05)
[2017-03-02] MEDS ORDERED: Enoxaparin 40 mg Syringe ONE (20:17)
[2017-03-02] MEDS ORDERED: Enoxaparin 80 mg Syringe ONE (20:17)
--- NOTE | 2017-03-02 20:36 | C.PDOC ---
Time Seen by Provider: 03/02/17 17:42 Chief Complaint (Nursing): Chest Pain History Per: Patient, EMS Onset/Duration Of Symptoms: Hrs (1), Sudden Onset Current Symptoms Are (Timing): Better Severity: Moderate Quality: "Pain" Associated Symptoms: Dyspnea Modifying Factors: Other Indicated Below Nitro Therapy Administered: 2, Per EMS, Complete Relief Additional History Per: Prior Records Past Medical History Reviewed: Historical Data, Nursing Documentation, Vital Signs Vital Signs: Last Vital Signs Temp 98.7 F 03/02/17 17:18 Pulse 78 03/02/17 19:44 Resp 19 03/02/17 19:44 BP 126/48 L 03/02/17 19:44 Pulse Ox 100 03/02/17 20:36 - Medical History PMH: Diabetes, HTN, Hyperlipidemia Surgical History: Cholecystectomy - [facility] Procedures ASSISTANCE WITH RESPIRATORY VENTILATION, 24-96 HRS, CPAP (04/02/16) EXCISION OF LEFT FOOT SKIN, EXTERNAL APPROACH (04/02/16) INSERTION OF INFUSION DEV INTO SUP VENA CAVA, PERC APPROACH (01/17/17) Family History: States: Unknown Family Hx - Social History Hx Tobacco Use: No Hx Alcohol Use: No Hx Substance Use: No - Immunization History Hx Tetanus Toxoid Vaccination: Yes Hx Influenza Vaccination: Yes Hx Pneumococcal Vaccination: Yes Review Of Systems Except As Marked, All Systems Reviewed And Found Negative. Constitutional: Negative for: Fever, Weakness Cardiovascular: Positive for: Chest Pain Respiratory: Negative for: Hemoptysis Gastrointestinal: Negative for: Vomiting, Abdominal Pain Musculoskeletal: Negative for: Neck Pain, Back Pain Skin: Negative for: Rash Neurological: Negative for: Weakness, Numbness Physical Exam - Physical Exam Appears: Non-toxic, No Acute Distress Skin: Normal Color, Warm, Dry, No Rash Head: Atraumatic, Normacephalic Eye(s): bilateral: Normal Inspection, PERRL, EOMI Neck: Normal ROM, Supple Chest: Symmetrical, No Deformity Cardiovascular: Rhythm Regular Respiratory: Normal Breath Sounds, No Accessory Muscle Use Gastrointestinal/Abdominal: Soft, No Tenderness Back: No CVA Tenderness Extremity: Normal ROM, No Calf Tenderness Neurological/Psych: Oriented x3, Normal Motor, Normal Sensation ED Course And Treatment - Laboratory Results Result Diagrams: 03/02/17 18:17 03/02/17 18:17 Lab Interpretation: No Changes Compared To Prior Results ECG: Interpreted By Me, Viewed By Me ECG Rhythm: Sinus Rhythm, Nonspecific Changes ECG Interpretation: No Acute Changes Rate From EC O2 Sat by Pulse Oximetry: 100 Pulse Ox Interpretation: Normal - Radiology CXR: Viewed By Me, Read By Radiologist CXR Interpretation: Yes: Cardiomegaly - Physician Consult Information Physician Contacted: Nikolai Vanegas (Card.) Outcome Of Conversation: He recommended giving pt Lovenox and admitting for observation and he will see her in the hospital. He also wants an Echocardiogram to be done in the AM. Progress - Interventions Interventions:: Observation, Oxygen - Medications Administered Oral: Aspirin (given by EMS) Subcutaneous: other (Lovenox) - Data Reviewed Data Reviewed: Lab, Diagnostic imaging, EKG, Old records - Patient Status Patient status: Mostly improved - Continuity of Care Discussed patient case with:: Patient, ED Nurse, PMD Discussed pt. case with quality assurance consultant/specialty: Cardiology Disposition Discussed With : Emma Pierce Comment: He accepted pt on his service. Doctor Will See Patient In The: Hospital Counseled Patient/Family Regarding: Studies Performed, Diagnosis - Disposition Disposition: HOSPITALIZED Disposition Time: 20:39 Condition: FAIR - Clinical Impression Clinical Impression: Chest pain
[2017-03-03] MEDS: (Novolog) Insulin Aspart, Recombinant 100 u/ml 10 ml vial SC SCH ×4 (07:30→23:13)
[2017-03-03] MEDS: Enoxaparin 40 mg Syringe SC SCH (09:29)
--- NOTE | 2017-03-03 16:17 | CP.PCM.CON ---
History of Present Illness - History of Present Illness History of Present Illness: 46 y/o woman who presents with CP. aching, off and on, L&R precordium, no radiation to neck,jaw,arm Chronic JARRELL due to morbid obesity, deconditioning and diastolic hypertensive heart disease. PMHX; HTN chronic labile, morbidly obese- chronic, Diastolic Dysfunction chronic NYHA 2-3 sx's, lymphedema/venous stasis in legs chronic PSHX: Gall bladder, Cardiac cath: 07/15/16 Cath done at [facility] for anginal sx's 07/15/16 LM: normal LCX: normal LAD: normal RCA: Normal LVEF: normal 60% ROS: + arthritic complaints joints + lymphedema chronic +++ Obesity No fevers, chills Chronic SOB No carotid sx's All 12 systems reviewed and negative except for that mentioned in HPI and above Review of Systems - Review of Systems All systems: reviewed and no additional remarkable complaints except - Constitutional Constitutional: Sleep Apnea - Cardiovascular Cardiovascular: Dyspnea on Exertion - Respiratory Respiratory: absent: Hemoptysis - Musculoskeletal Musculoskeletal: Arthralgias Past Patient History - Infectious Disease Hx of Infectious Diseases: None - Past Medical History & Family History Past Medical History?: Yes - Past Social History Smoking Status: Never Smoked - CARDIAC Hx Cardiac Disorders: Yes Hx Hypertension: Yes - PULMONARY Hx Respiratory Disorders: No - NEUROLOGICAL Hx Neurological Disorder: Yes Hx Dizziness: Yes - HEENT Hx HEENT Problems: No - RENAL Hx Chronic Kidney Disease: No - ENDOCRINE/METABOLIC Hx Endocrine Disorders: Yes Hx Diabetes Mellitus Type 2: Yes - HEMATOLOGICAL/ONCOLOGICAL Hx Blood Disorders: No - INTEGUMENTARY Hx Dermatological Problems: Yes Hx Cellulitis: Yes - MUSCULOSKELETAL/RHEUMATOLOGICAL Hx Musculoskeletal Disorders: No Hx Falls: No - GASTROINTESTINAL Hx Gastrointestinal Disorders: No - GENITOURINARY/GYNECOLOGICAL Hx Genitourinary Disorders: No - PSYCHIATRIC Hx Psychophysiologic Disorder: No Hx Substance Use: No - SURGICAL HISTORY Hx Surgeries: Yes Hx Cholecystectomy: Yes Other/Comment: "cardiac cath X 3?" - ANESTHESIA Hx Anesthesia: Yes Hx Anesthesia Reactions: No Hx Malignant Hyperthermia: No Meds Allergies/Adverse Reactions: Allergies Allergy/AdvReac Type Severity Reaction Status Date / Time No Known Allergies Allergy Verified 01/15/17 11:17 - Medications Medications: Current Medications Aspirin (Ecotrin) 81 mg PO DAILY [facility] Last Admin: 03/03/17 09:28 Dose: 81 mg Carvedilol (Coreg) 12.5 mg PO Q12H [facility] Last Admin: 03/03/17 13:09 Dose: 12.5 mg Enoxaparin Sodium (Lovenox) 40 mg SC DAILY [facility] Last Admin: 03/03/17 09:29 Dose: 40 mg Hydralazine HCl (Apresoline) 50 mg PO DAILY [facility] Last Admin: 03/03/17 09:28 Dose: 50 mg Insulin Aspart (Novolog) 0 unit SC [facility] PRN Reason: Protocol Last Admin: 03/03/17 11:30 Dose: Not Given Isosorbide Mononitrate (Imdur Er) 30 mg PO DAILY [facility] Last Admin: 03/03/17 09:28 Dose: 30 mg Lisinopril (Zestril) 20 mg PO DAILY [facility] Last Admin: 03/03/17 09:28 Dose: 20 mg Metformin HCl (Glucophage) 500 mg PO BID [facility] Last Admin: 03/03/17 09:28 Dose: 500 mg Physical Exam - Constitutional Appears: No Acute Distress, Other (morbidly obese, chronic LE lymphedema and venous stasis) - Eye Exam Eye Exam: EOMI, Normal appearance, PERRL - ENT Exam ENT Exam: Mucous Membranes Moist, Normal Oropharynx - Neck Exam Neck exam: Positive for: Normal Inspection - Respiratory Exam Respiratory Exam: Clear to Auscultation Bilateral, NORMAL BREATHING PATTERN. absent: Chest Wall Tenderness, Rhonchi, Wheezes - Cardiovascular Exam Cardiovascular Exam: REGULAR RHYTHM, +S1, +S2. absent: Systolic Murmur - GI/Abdominal Exam GI & Abdominal Exam: Normal Bowel Sounds, Soft. absent: Tenderness - Extremities Exam Extremities exam: Negative for: calf tenderness - Neurological Exam Neurological exam: Alert, Oriented x3 - Psychiatric Exam Psychiatric exam: Normal Affect, Normal Mood - Skin Skin Exam: Normal Color, Warm Results - Vital Signs Recent Vital Signs: Last Vital Signs Temp 98 F 03/03/17 16:00 Pulse 78 03/03/17 16:00 Resp 20 03/03/17 16:00 BP 133/70 03/03/17 16:00 Pulse Ox 98 03/03/17 16:00 - Labs Result Diagrams: 03/02/17 18:17 03/02/17 18:17 Labs: Laboratory Results - last 24 hr 03/02/17 03/03/17 03/03/17 23:36 01:50 06:29 POC Glucose (mg/dL) 99 99 Total Creatine Kinase 89 CK-MB (Mass) 0.26 Troponin I, Quant < 0.0120 03/03/17 03/03/17 11:04 11:34 POC Glucose (mg/dL) 109 Total Creatine Kinase 102 CK-MB (Mass) 0.38 Troponin I, Quant < 0.0120 - EKG Data EKG Interpreted by: Myself EKG shows normal: Sinus rhythm - Imaging and Cardiology Chest x-ray Status: Image reviewed by me (No infiltrate or effusion) Assessment & Plan - Assessment and Plan (Free Text) Assessment: Morbidly obese woman with secondary HTN, BDLN DM, venous stasis, ALYSA and lymphedema presents with chest pain. * I have reviewed the EKG which shows no ischenic changes * I have reviewed the echo which was done 01/09: Showing normal LVEF and wall motion, mild MR, TR and grade 2 diastolic dysfunction * She has had normal cardiac cath 1 year ago and again 07/15/16 * current admission she has ruled out for any ACS * Labs are overall wnl except for mild reduced MCV and mild anemia * I feel her sx's are musculoskeletal and non-cardiac * BP is acceptable although on 3 medications * Her LE edema is in part venous stasis and lymphedema: suggest wound care eval and ongoing follow-up with podiatry 1. Continue Medications: and DVT prophylaxis 2. Nightly CPAP for hx of ALYSA 3. No further cardiac work-up is planned. 4. continue current meds 5. cont ASA 6. d/c planning * Suggest evaluation for bariatric surgery
--- NOTE | 2017-03-03 18:51 | CARD ---
APPROVED REPORT EKG Measurement Heart [id number] TN 122P68 [id number] <Conclusion> Normal sinus rhythm Possible Left atrial enlargement Borderline ECG
[2017-03-04 00:12] VITALS: RESP 20
--- NOTE | 2017-03-04 03:02 | HP ---
HISTORY OF PRESENT ILLNESS: This is a 46 years old morbidly obese -[place] female who has history of multiple medical problems, presented to emergency room with symptoms of chest pain, mostly right-sided associated with headache. The patient was previously admitted to the hospital with similar symptoms. The patient has been followed by [facility] [employer] sk[facility], Dr. Vanegas. The patient had cardiac catheterization, latest on June of [address] Vanegas and that was normal coronary arteries. The patient has exertional shortness of breath and has diastolic dysfunction and carries a diagnosis of diastolic dysfunction with diastolic heart failure. REVIEW OF SYSTEMS: Other review of system, the patient has bilateral lower extremity edema and dysfunctional gait. PAST MEDICAL HISTORY: Hypertension, type 2 diabetes mellitus, bilateral lymphedema of both lower extremities, and morbid obesity. SOCIAL HISTORY: No history of smoking, ETOH or substance abuse. FAMILY HISTORY: Noncontributory. HOME MEDICATIONS: Imdur 30 mg daily, Coreg 12.5 mg every 12 hours, aspirin 81 mg daily, metformin 500 mg twice a day, hydralazine 50 mg daily, and lisinopril 20 mg daily. PHYSICAL EXAMINATION: GENERAL: The patient is in bed, comfortable, not in any cardiopulmonary distress. VITAL SIGNS: At the time of this examination with blood pressure 133/70, temperature 98, respiratory rate 20, and pulse 78. HEENT: Pupils are equal and reactive to light. Normal appearing mucosa of the conjunctivae, oropharynx, and nasal membrane mucosa. NECK: Supple. No JVD. No carotid bruit. No lymph node. No thyromegaly. CHEST AND LUNGS: Bilateral symmetrical expansion. Good air exchange. No rales. No rhonchi. CARDIOVASCULAR SYSTEM: PMI not localized. S1 and S2. No additional sounds. ABDOMEN: Normoactive bowel sounds. No tenderness. No organomegaly. No masses. EXTREMITIES: No cyanosis. No clubbing. Bilateral +4 edema of both lower extremities. Chronic edema with chronic skin changes secondary to lymphedema. ASSESSMENT: 1. Atypical chest pain with history of normal coronary artery disease as per two cardiac catheterizations done during the last 2 years. 2. Diastolic congestive heart failure. 3. Morbid obesity. 4. Hypertension. 5. Type 2 diabetes mellitus. 6. Chronic lymphedema of both lower extremities. PLAN: We will follow cardiology recommendations and cardiac enzymes every 8 hours x3 and resume the patient's home medications. We will do Accu-Cheks with insulin coverage as needed. Emma Pierce MD
[2017-03-04] MEDS: (Novolog) Insulin Aspart, Recombinant 100 u/ml 10 ml vial SC SCH ×2 (07:30→13:10)
[2017-03-04] MEDS: Enoxaparin 40 mg Syringe SC SCH (09:11)
--- NOTE | 2017-03-04 15:36 | CP.PCM.PN ---
Subjective - Date & Time of Evaluation Date of Evaluation: 03/04/17 Time of Evaluation: 15:36 - Subjective Subjective: PT CLEARED FOR D/C BY DR. DEVI. CLEARED BY CARDIOLOGY FOR OP F/U AND FURTHER TESTING. RX GIVEN FOR IBUPROFEN PRN. TO F/U WITH DR. DEVI IN THE OFFICE. NO FURTHER ORDERS. Objective - Vital Signs/Intake and Output Vital Signs (last 24 hours): Temp Pulse Resp BP Pulse Ox 98.3 F 74 20 152/79 H 99 03/04/17 08:00 03/04/17 08:00 03/04/17 08:00 03/04/17 13:10 03/04/17 08:00 Intake and Output: 03/04/17 03/04/17 06:59 18:59 Intake Total 300 480 Balance 300 480 - Medications Medications: Current Medications Aspirin (Ecotrin) 81 mg PO DAILY [facility] Last Admin: 03/04/17 09:14 Dose: 81 mg Carvedilol (Coreg) 12.5 mg PO Q12H [facility] Last Admin: 03/04/17 13:10 Dose: 12.5 mg Enoxaparin Sodium (Lovenox) 40 mg SC DAILY [facility] Last Admin: 03/04/17 09:11 Dose: 40 mg Furosemide (Lasix) 20 mg PO DAILY [facility] Last Admin: 03/04/17 09:11 Dose: 20 mg Hydralazine HCl (Apresoline) 50 mg PO DAILY [facility] Last Admin: 03/04/17 09:11 Dose: 50 mg Insulin Aspart (Novolog) 0 unit SC [facility] PRN Reason: Protocol Last Admin: 03/04/17 13:10 Dose: Not Given Isosorbide Mononitrate (Imdur Er) 30 mg PO DAILY [facility] Last Admin: 03/04/17 09:11 Dose: 30 mg Lisinopril (Zestril) 20 mg PO DAILY [facility] Last Admin: 03/04/17 09:11 Dose: 20 mg Metformin HCl (Glucophage) 500 mg PO BID [facility] Last Admin: 03/04/17 09:11 Dose: 500 mg
[2017-03-04 16:18] VITALS: BP 132/80; PULSE 78; TEMP 98.1; O2SAT 97
--- NOTE | 2017-03-06 02:18 | DS ---
REASON FOR ADMISSION: This is a 46 years old morbidly obese female with history of multiple medical problems, was admitted for chest pain. COURSE OF HOSPITALIZATION: The patient was admitted to telemetry floor and myocardial infarction was ruled out by negative cardiac enzyme. The patient had cardiology consultation done by Dr. Vanegas. The patient did well and chest pain was resolved as patient had cardiac catheterization twice during the past 2 years and she had normal coronary arteries. The patient was cleared by cardiology for discharge. The patient was discharged to follow as an outpatient with [employer] for possible sleep apnea as well as to resume her preadmission medications. FINAL DIAGNOSES: Morbid obesity, chest pain likely musculoskeletal, chronic lymph edema of both lower extremities, type 2 diabetes mellitus, and hypertension. [facility] MD Stan
== END 2017-03-04 16:45 | disposition home or self-care (01) ==
LOC: C.ER 17:11 → C.9E 20:40 → C.5S 21:34
PROVIDERS: ADMIT Internal Medicine; ATTEND Internal Medicine
DX: R07.9 Chest pain, unspecified (principal); E66.01 Morbid (severe) obesity due to excess calories; I89.0 Lymphedema, not elsewhere classified; E11.9 Type 2 diabetes mellitus without complications; I11.0 Hypertensive heart disease with heart failure; I50.30 Unspecified diastolic (congestive) heart failure; I87.8 Other specified disorders of veins; Z68.44 Body mass index [BMI] 60.0-69.9, adult
CPT/HCPCS: 36415; 71010; 80053; 82948; 83690; 83880; 84484; 85025; 93005; 96372; 97116; 97162; 99285; G0378; G8978; G8979; J1650

== ENCOUNTER 2017-05-08 10:51 | Emergency (ER) | payer MEDICAID ==
[2017-05-08 10:51] VITALS: BMI 60.4
[2017-05-08 11:08] VITALS: PULSE 98; TEMP 97.8
--- NOTE | 2017-05-08 11:38 | C.PDOC ---
History Of Present Illness 46 year old female with a PMHx of HTN, chronic labile, morbidly obese-chronic, Diastolic Dysfunction chronic NYHA 2-3 symptoms, chronic lymphedema/venous statsis in legs, presents to the ED with complaints of recurrent chest pain for four days. Patient is poor historian. Patient describes pain as intermittent and states she is complaint with medications. Patient has a PSHx of gall bladder and cardiac catheterization on 07/15/2016 for anginal symptoms. LM, LCX , LAD, and RCA were normal. LVEF was normal 60%. Patient denies any other symptoms. POOR HISTORIAN CO RECUR R CP X 4 DAYS. INTERMIT. NO OTHER ASSOC SX. COMPLIANT W MEDS HTN chronic labile, morbidly obese- chronic, Diastolic Dysfunction chronic NYHA 2-3 sx's, lymphedema/venous stasis in legs chronic PSHX: Gall bladder, Cardiac cath: 07/15/16 Cath done at [facility] for anginal sx's 07/15/16 LM: normal LCX: normal LAD: normal RCA: Normal LVEF: normal 60% EXAM NAD NEG MDM ADMITTED 02/2017 FOR SAME. ECHO 02/2017 REPORT REVIEWED PS NEW ONSET CP BUT MULT PRIOR VISITS AND ADMISSION FOR CP. RECENT CARDIAC EVAL FOR SAME Time Seen by Provider: 05/08/17 11:35 Chief Complaint (Nursing): Chest Pain History Per: Patient History/Exam Limitations: other (patient is poor historian ) Onset/Duration Of Symptoms: Days (4 days ) Current Symptoms Are (Timing): Still Present Quality: "Pain" Modifying Factors: None Exacerbating Factors: None Alleviating Factors: None Recent travel outside of the [place]: No Additional History Per: Prior Records Past Medical History Reviewed: Historical Data, Nursing Documentation, Vital Signs Vital Signs: Last Vital Signs Temp 97.8 F 05/08/17 11:06 Pulse 98 H 05/08/17 11:06 Resp 16 05/08/17 11:06 BP 152/74 H 05/08/17 11:06 Pulse Ox 100 05/08/17 13:50 - Medical History PMH: Diabetes, HTN, Hypercholesterolemia, Hyperlipidemia Surgical History: Cholecystectomy - [facility] Procedures ASSISTANCE WITH RESPIRATORY VENTILATION, 24-96 HRS, CPAP (04/02/16) EXCISION OF LEFT FOOT SKIN, EXTERNAL APPROACH (04/02/16) INSERTION OF INFUSION DEV INTO SUP VENA CAVA, PERC APPROACH (01/17/17) Family History: States: Unknown Family Hx - Social History Hx Tobacco Use: No Hx Alcohol Use: No Hx Substance Use: No - Immunization History Hx Tetanus Toxoid Vaccination: Yes Hx Influenza Vaccination: Yes Hx Pneumococcal Vaccination: Yes Review Of Systems Constitutional: Negative for: Fever, Chills Cardiovascular: Positive for: Chest Pain. Negative for: Palpitations Respiratory: Negative for: Cough, Shortness of Breath Gastrointestinal: Negative for: Nausea, Vomiting, Abdominal Pain, Diarrhea Neurological: Negative for: Weakness, Numbness Physical Exam - Physical Exam Appears: Non-toxic, No Acute Distress Skin: Warm, Dry, No Rash Head: Atraumatic, Normacephalic, No Tenderness Eye(s): bilateral: Normal Inspection, PERRL, EOMI Oral Mucosa: Moist Neck: Supple Chest: Symmetrical, No Deformity, No Tenderness Cardiovascular: Rhythm Regular, No Murmur Respiratory: No Rales, No Rhonchi, No Wheezing, Other (clear to auscultation bilaterally ) Gastrointestinal/Abdominal: Soft, No Tenderness, No Distention, No Guarding, No Rebound Extremity: Normal ROM, No Tenderness Neurological/Psych: Oriented x3 ED Course And Treatment - Laboratory Results Result Diagrams: 05/08/17 12:04 05/08/17 12:04 ECG: Interpreted By Me ECG Rhythm: Sinus Rhythm ECG Interpretation: Normal Rate From EC O2 Sat by Pulse Oximetry: 100 (RA) Pulse Ox Interpretation: Normal - Radiology CXR: Viewed By Me, Read By Radiologist CXR Interpretation: Yes: Other (Mild pulmonary venous congestion.) Progress Note: EKG, CXR, and blood work was ordered. Progress - Re-Evaluation Re-evaluation Note: 05/08/17 12:28 D/W DR DEVI. CLEARED FOR DC FU DR LOPEZ 05/08/17 13:59 APPEARS COMFORTABLE NAD VSS. NO RECUR CP - Data Reviewed Data Reviewed: Lab, Diagnostic imaging, EKG, Old records - Continuity of Care Discussed patient case with:: Patient, PMD Medical Decision Making Medical Decision Making: ADMITTED 02/2017 FOR SAME. ECHO 02/2017 REPORT REVIEWED PATIENT STATES NEW ONSET CHEST PAIN BUT MULTIPLE PRIOR VISITS AND ADMISSION FOR CHEST PAIN. RECENT CARDIAC EVAL FOR SAME. Disposition Counseled Patient/Family Regarding: Studies Performed, Diagnosis, Need For Followup - Disposition Referrals: Mykel Lopez MD [Medical Doctor] - Disposition: HOME/ ROUTINE Disposition Time: 14:00 Condition: IMPROVED Instructions: Chest Pain (ED) Forms: [employer] (Latvian) - Clinical Impression Clinical Impression: Chest pain - Scribe Statement The provider has reviewed the documentation as recorded by the Sushilibneeraj Kearney All medical record entries made by the Sushilibneeraj were at my direction and personally dictated by me. I have reviewed the chart and agree that the record accurately reflects my personal performance of the history, physical exam, medical decision making, and the department course for this patient. I have also personally directed, reviewed, and agree with the discharge instructions and disposition.
--- NOTE | 2017-05-08 12:10 | RAD ---
HISTORY: chest pain COMPARISON: Chest x-ray performed 03/02/17 TECHNIQUE: Chest PA and lateral FINDINGS: Examination limited by habitus. LUNGS: Mild pulmonary venous congestion. No focal consolidation. Please note that chest x-ray has limited sensitivity for the detection of pulmonary masses. PLEURA: No significant pleural effusion identified. No definite pneumothorax . CARDIOVASCULAR: Heart size appears within normal limits. Ectatic aorta. OSSEOUS STRUCTURES: Degenerative changes of the spine. VISUALIZED UPPER ABDOMEN: Unremarkable. OTHER FINDINGS: None. IMPRESSION: Mild pulmonary venous congestion.
[2017-05-08 12:18] LABS: CHLORIDE 101 mmol/L (98-107); SODIUM 135 mmol/L (132-148)
[2017-05-08 12:21] LABS: BLOOD UREA NITROGEN 11 mg/dL (7-17); CARBON DIOXIDE 27 mmol/L (22-30); GFR AFRICAN-AMERICAN > 60; GLUCOSE,RANDOM 85 mg/dL (65-105)
[2017-05-08 12:22] LABS: CALCIUM 8.4 mg/dl (8.6-10.4)
[2017-05-08 12:28] LABS: BASO # 0.1 K/uL (0.0-0.2); BASO % 0.5 % (0.0-2.0); EOS # 0.1 K/uL (0.0-0.7); EOS % 1.4 % (0.0-4.0); HEMATOCRIT 37.7 % (34.0-47.0); LYMPH # 2.4 K/uL (1.0-4.3); LYMPH % 24.4 % (20.0-40.0); MEAN CELL VOLUME 79.7 fL (81.0-99.0); MEAN CORPUSCULAR HEMOGLOBIN 26.1 pg (27.0-31.0); MEAN CORPUSCULAR HGB CONC 32.8 g/dL (33.0-37.0); MONO # 0.9 K/uL (0.0-0.8); NRBC % 0.4 % (0.0-2.0); RED CELL DISTRIBUTION WIDTH 15.5 % (11.5-14.5)
[2017-05-08 14:24] VITALS: BP 131/66; RESP 18; O2SAT 94
--- NOTE | 2017-05-10 13:13 | CARD ---
APPROVED REPORT EKG Measurement Heart [id number] ND [id number] <Conclusion> Normal sinus rhythm Nonspecific ST and T wave abnormality Abnormal ECG
== END 2017-05-08 14:44 | disposition home or self-care (01) ==
LOC: C.ER 10:51
DX: R07.9 Chest pain, unspecified (principal); I10 Essential (primary) hypertension; E11.9 Type 2 diabetes mellitus without complications; E78.00 Pure hypercholesterolemia, unspecified

== ENCOUNTER 2017-11-14 12:13 | Emergency (ER) | payer MEDICAID ==
[2017-11-14 12:18] VITALS: BMI 60.2
[2017-11-14 13:05] LABS: BASO # 0.1 K/uL (0.0-0.2); BASO % 0.7 % (0.0-2.0); EOS # 0.2 K/uL (0.0-0.7); HEMOGLOBIN 11.7 g/dL (11.0-16.0); LYMPH % 26.7 % (20.0-40.0); MEAN CORPUSCULAR HEMOGLOBIN 27.7 pg (27.0-31.0); MEAN CORPUSCULAR HGB CONC 33.7 g/dL (33.0-37.0); MEAN PLATELET VOLUME 8.3 fL (7.2-11.7); MONO # 0.6 K/uL (0.0-0.8); MONO % 8.6 % (0.0-10.0); NEUT # 4.5 K/uL (1.8-7.0); RBC 4.24 Mil/uL (3.80-5.20); RED CELL DISTRIBUTION WIDTH 14.4 % (11.5-14.5); WHITE BLOOD COUNT 7.4 K/uL (4.8-10.8)
[2017-11-14 13:25] LABS: CK-MB 0.57 ng/mL (0.0-3.38)
[2017-11-14 13:29] LABS: ALT/SGPT 7 U/L (9-52)
[2017-11-14 13:31] LABS: ALB/GLOB RATIO 0.8 (1.0-2.1); ALBUMIN 3.6 g/dL (3.5-5.0); AST/SGOT 31 U/L (14-36); BLOOD UREA NITROGEN 14 mg/dL (7-17); CALCIUM 9.2 mg/dl (8.6-10.4); GFR AFRICAN-AMERICAN > 60; GFR NON-AFRICAN AMERICAN > 60
--- NOTE | 2017-11-14 13:59 | RAD ---
HISTORY: chest pain COMPARISON: 05/08/2017 TECHNIQUE: Chest PA and lateral FINDINGS: LUNGS: No active pulmonary disease. PLEURA: No significant pleural effusion identified. No pneumothorax apparent. CARDIOVASCULAR: Normal. OSSEOUS STRUCTURES: No significant abnormalities. VISUALIZED UPPER ABDOMEN: Normal. OTHER FINDINGS: None. IMPRESSION: No active disease.
[2017-11-14 14:11] LABS: HDL CHOLESTEROL 52 mg/dL (30-70)
[2017-11-14 14:21] LABS: SQUAMOUS EPITHIAL 2 /hpf (0-5); URINE BACTERIA RARE (<OCC); URINE BILIRUBIN NEGATIVE (NEGATIVE); URINE BLOOD 2+ (NEGATIVE); URINE CLARITY Hazy (Clear); URINE COLOR Yellow (YELLOW); URINE GLUCOSE (UA) NORMAL (Normal); URINE LEUKOCYTE ESTERASE TRACE Leu/uL (Negative); URINE PROTEIN NEGATIVE (NEGATIVE); URINE UROBILINOGEN NORMAL mg/dL (0.2-1.0)
[2017-11-14 14:22] LABS: LDL CHOLESTEROL 82 mg/dL (0-129)
--- NOTE | 2017-11-14 15:00 | C.PDOC ---
History Of Present Illness 47yo female with history of diabetes, hypertension, chronically labile, obese, chronic lymphedema with venous stasis changes, presents to ED with complaints of chest pain for the past month. She states the pain is worse at night and with laying down. Patient states today during the day, she noted anterior chest pain, going from left to right and right to left. She also reports chronic shortness of breath (unable to expand more) and a headache. She denies any nausea, vomiting, diarrhea, abdominal pain. She has no other medical complaints. Patient had cardiac cath on 07/12 with EF of 60; no stents placed. PMD: Dr. Pierce Time Seen by Provider: 11/14/17 13:18 Chief Complaint (Nursing): Chest Pain History Per: Patient History/Exam Limitations: no limitations Onset/Duration Of Symptoms: Days Current Symptoms Are (Timing): Still Present Quality: "Pain" Associated Symptoms: denies: Nausea, Dyspnea, Diaphoresis, Syncope Additional History Per: Patient Past Medical History Reviewed: Historical Data, Nursing Documentation, Vital Signs Vital Signs: Last Vital Signs Temp 98.7 F 11/14/17 21:49 Pulse 89 11/14/17 21:49 Resp 16 11/14/17 21:49 BP 130/77 11/14/17 21:49 Pulse Ox 99 11/14/17 21:49 - Medical History PMH: Diabetes, HTN, Hypercholesterolemia, Hyperlipidemia Denies: Anxiety, Chronic Kidney Disease Surgical History: Cholecystectomy - [facility] Procedures ASSISTANCE WITH RESPIRATORY VENTILATION, 24-96 HRS, CPAP (04/02/16) EXCISION OF LEFT FOOT SKIN, EXTERNAL APPROACH (04/02/16) INSERTION OF INFUSION DEV INTO SUP VENA CAVA, PERC APPROACH (01/17/17) Family History: States: No Known Family Hx, Unknown Family Hx - Social History Hx Tobacco Use: No Hx Alcohol Use: No Hx Substance Use: No - Immunization History Hx Tetanus Toxoid Vaccination: Yes Hx Influenza Vaccination: Yes Hx Pneumococcal Vaccination: Yes Review Of Systems Except As Marked, All Systems Reviewed And Found Negative. Constitutional: Negative for: Fever, Chills Eyes: Negative for: Pain ENT: Negative for: Ear Pain, Throat Pain Cardiovascular: Positive for: Chest Pain Respiratory: Positive for: Shortness of Breath. Negative for: Cough Gastrointestinal: Negative for: Nausea, Vomiting, Abdominal Pain, Diarrhea Musculoskeletal: Negative for: Back Pain Skin: Negative for: Rash Neurological: Positive for: Headache Physical Exam - Physical Exam Appears: Non-toxic, No Acute Distress, Other (morbidly obese) Skin: Normal Color, Warm, Dry Head: Atraumatic, Normacephalic Eye(s): bilateral: Normal Inspection, PERRL, EOMI Oral Mucosa: Moist Lips: Normal Appearing Teeth: Normal Dentition Gingiva: Normal Appearing Throat: Normal Neck: Normal, Normal ROM, Supple Chest: Symmetrical, No Tenderness Cardiovascular: Rhythm Regular Respiratory: Normal Breath Sounds, No Wheezing Gastrointestinal/Abdominal: Normal Exam, Soft, No Tenderness Back: Normal Inspection Extremity: Normal ROM, No Deformity Neurological/Psych: Oriented x3 ED Course And Treatment - Laboratory Results Result Diagrams: 11/14/17 12:50 11/14/17 12:50 ECG: Interpreted By Me, Viewed By Me ECG Rhythm: Sinus Rhythm Interpretation Of ECG: T wave inversion in 3 and AVF no priors. No ischemic changes. NJ 126. QRS 56. QT 362 QTC 447 Rate From EC O2 Sat by Pulse Oximetry: 98 (RA) Pulse Ox Interpretation: Normal Medical Decision Making Medical Decision Making: Impression: Chest pain Plan: -- Labs -- EKG -- Urinalysis -- Toradol 15mg IVP Time: 1642 On reassessment, patient reports persistent pain so Valium 5mg PO and tylenol 975mg PO ordered. labs reviewed and within normal limits; ddimer negative. Two troponins negative, patient is comfortable, CXR negative. Repeat EKG unchanged from the first. Patient is ready for discharge and will follow up outpatient. Disposition Counseled Patient/Family Regarding: Diagnosis, Need For Followup - Disposition Referrals: [facility] [Outside] [facility] [Outside] [facility] [Outside] Disposition: HOME/ ROUTINE Disposition Time: 21:39 Condition: GOOD Additional Instructions: return if symptoms return or worsen follow up with Dr. Emma Pierce Instructions: Chest Pain That Is Not Caused by the Heart (DC) Forms: [employer] ([place]) - Clinical Impression Clinical Impression: Chest discomfort - Scribe Statement The provider has reviewed the documentation as recorded by the Scribe (Carolina Allen) Provider Attestation: All medical record entries made by the Scribe were at my direction and personally dictated by me. I have reviewed the chart and agree that the record accurately reflects my personal performance of the history, physical exam, medical decision making, and the department course for this patient. I have also personally directed, reviewed, and agree with the discharge instructions and disposition.
[2017-11-14 15:16] VITALS: RESP 16
[2017-11-14 21:50] VITALS: BP 130/77; PULSE 89; TEMP 98.7
[2017-11-14 22:26] VITALS: O2SAT 98
--- NOTE | 2017-11-15 14:36 | CARD ---
APPROVED REPORT EKG Measurement Heart [id number] 126P57 [id number] <Conclusion> Normal sinus rhythm Possible Left atrial enlargement T wave abnormality, consider inferior ischemia Abnormal ECG
== END 2017-11-14 22:14 | disposition home or self-care (01) ==
LOC: C.ER 12:13
DX: R07.89 Other chest pain (principal); E11.9 Type 2 diabetes mellitus without complications; E78.00 Pure hypercholesterolemia, unspecified; I10 Essential (primary) hypertension
CPT/HCPCS: 36415; 71046; 80053; 80061; 81001; 84484; 85025; 85378; 93005; 96374; 99285; J1885

== ENCOUNTER 2017-11-30 07:54 | Day surgery (SDC) | payer MEDICAID ==
[2017-11-30 08:28] VITALS: TEMP 97.1
[2017-11-30] MEDS ORDERED: Propofol 10 mg/ml Inj (20 ML) ONE ×2 (09:35→10:04)
[2017-11-30] MEDS ORDERED: Lactated Ringer's 1,000 ML IV ONE ×2 (09:36)
[2017-11-30 11:54] VITALS: BP 160/70; PULSE 87; RESP 18; O2SAT 98
== END 2017-11-30 11:40 | disposition home or self-care (01) ==
LOC: C.ENDO 07:54
PROVIDERS: ATTEND Internal Medicine Gastroenterology
DX: K64.0 First degree hemorrhoids (principal)
CPT/HCPCS: 45378; 82948; 84703; J2704; J7120

== ENCOUNTER 2018-01-08 12:43 | Emergency (ER) | payer MEDICAID ==
[2018-01-08 12:43] VITALS: BMI 60.2
[2018-01-08 14:18] LABS: HCG,QUALITATIVE URINE NEGATIVE (NEGATIVE)
[2018-01-08 14:21] LABS: SQUAMOUS EPITHIAL 1 /hpf (0-5); URINE BILIRUBIN NEGATIVE (NEGATIVE); URINE BLOOD 2+ (NEGATIVE); URINE CLARITY Clear (Clear); URINE COLOR Yellow (YELLOW); URINE GLUCOSE (UA) NORMAL (Normal); URINE LEUKOCYTE ESTERASE NEG Leu/uL (Negative); URINE PROTEIN NEGATIVE (NEGATIVE); URINE UROBILINOGEN NORMAL mg/dL (0.2-1.0)
[2018-01-08 14:49] LABS: BASO # 0.1 K/uL (0.0-0.2); BASO % 0.7 % (0.0-2.0); EOS # 0.4 K/uL (0.0-0.7); EOS % 4.8 % (0.0-4.0); HEMOGLOBIN 11.8 g/dL (11.0-16.0); LYMPH % 25.4 % (20.0-40.0); MEAN CELL VOLUME 81.2 fL (81.0-99.0); MEAN CORPUSCULAR HEMOGLOBIN 27.1 pg (27.0-31.0); MEAN CORPUSCULAR HGB CONC 33.4 g/dL (33.0-37.0); MEAN PLATELET VOLUME 8.1 fL (7.2-11.7); MONO # 0.6 K/uL (0.0-0.8); MONO % 8.4 % (0.0-10.0); NEUT # 4.7 K/uL (1.8-7.0); NEUT % 60.7 % (50.0-75.0); NRBC % 0.1 % (0.0-2.0); RBC 4.34 Mil/uL (3.80-5.20); RED CELL DISTRIBUTION WIDTH 13.9 % (11.5-14.5); WHITE BLOOD COUNT 7.7 K/uL (4.8-10.8)
[2018-01-08 14:56] LABS: ALB/GLOB RATIO 0.9 (1.0-2.1); ALBUMIN 3.7 g/dL (3.5-5.0); ALT/SGPT 12 U/L (9-52); AST/SGOT 20 U/L (14-36); BLOOD UREA NITROGEN 14 mg/dL (7-17); CALCIUM 8.5 mg/dl (8.6-10.4); GFR AFRICAN-AMERICAN > 60; GFR NON-AFRICAN AMERICAN > 60; LIPASE 136 U/L (23-300)
--- NOTE | 2018-01-08 15:27 | C.PDOC ---
History Of Present Illness Pt has multiple complaints, including burning sensation in epigastric area and genital burning/itching. Time Seen by Provider: 01/08/18 13:15 Chief Complaint (Nursing): Medical Clearance History Per: Patient Onset/Duration Of Symptoms: Days (few) Current Symptoms Are (Timing): Still Present Severity: Moderate Additional History Per: Prior Records Past Medical History Reviewed: Historical Data, Nursing Documentation, Vital Signs Vital Signs: Last Vital Signs Temp 98.6 F 01/08/18 12:47 Pulse 96 H 01/08/18 13:35 Resp 25 H 01/08/18 13:35 BP 167/81 H 01/08/18 13:35 Pulse Ox 100 01/08/18 13:35 - Medical History PMH: Diabetes, Gall Bladder Disease, HTN, Hypercholesterolemia, Hyperlipidemia Surgical History: Cholecystectomy - [facility] Procedures ASSISTANCE WITH RESPIRATORY VENTILATION, 24-96 HRS, CPAP (04/02/16) EXCISION OF LEFT FOOT SKIN, EXTERNAL APPROACH (04/02/16) INSERTION OF INFUSION DEV INTO SUP VENA CAVA, PERC APPROACH (01/17/17) Family History: States: Unknown Family Hx - Social History Hx Tobacco Use: No Hx Alcohol Use: No Hx Substance Use: No - Immunization History Hx Tetanus Toxoid Vaccination: Yes Hx Influenza Vaccination: Yes Hx Pneumococcal Vaccination: Yes Review Of Systems Except As Marked, All Systems Reviewed And Found Negative. Constitutional: Negative for: Fever, Weakness Respiratory: Negative for: Shortness of Breath, Hemoptysis Gastrointestinal: Positive for: Diarrhea. Negative for: Vomiting, Melena, Hematochezia, Hematemesis Genitourinary: Negative for: Vaginal Bleeding Musculoskeletal: Negative for: Neck Pain, Back Pain Neurological: Negative for: Weakness, Numbness Physical Exam - Physical Exam Appears: Non-toxic, No Acute Distress Skin: Normal Color, Warm, Dry Head: Atraumatic, Normacephalic Eye(s): bilateral: PERRL, EOMI Neck: Normal ROM, Supple Cardiovascular: Rhythm Regular Respiratory: Normal Breath Sounds, No Accessory Muscle Use Gastrointestinal/Abdominal: Soft, No Tenderness Back: No CVA Tenderness Pelvic: Other (External exam shows signs of vulvovaginal candidiasis) Extremity: Normal ROM Neurological/Psych: Oriented x3, Normal Motor, Normal Sensation ED Course And Treatment - Laboratory Results Result Diagrams: 01/08/18 14:29 01/08/18 14:29 Lab Interpretation: No Acute Changes Urine POC: Negative O2 Sat by Pulse Oximetry: 100 Pulse Ox Interpretation: Normal Reassessment Condition: Improved Disposition Counseled Patient/Family Regarding: Studies Performed, Diagnosis, Need For Followup, Rx Given - Disposition Referrals: Emma Pierce MD [Staff Provider] - Disposition: HOME/ ROUTINE Disposition Time: 15:27 Condition: IMPROVED Additional Instructions: Follow up with your doctor for further evaluation and treatment. Return to the ER if you develop fever, vomiting, worsening of symptoms or if you have any other concerns. Prescriptions: Famotidine [Pepcid] 20 mg PO BID #30 tab Miconazole 2% Vaginal [Monistat 7 Vaginal Cream] 1 applic VG HS #1 tube Instructions: Vaginal Yeast Infection (DC), Acid Reflux (Gastroesophageal Reflux Disease) in Adults Forms: [facility] ([place]) - Clinical Impression Clinical Impression: Vulvovaginal candidiasis, GERD (gastroesophageal reflux disease)
[2018-01-08 16:17] VITALS: BP 181/93; PULSE 97; RESP 20; TEMP 98.3; O2SAT 99
--- NOTE | 2018-01-09 17:49 | CARD ---
APPROVED REPORT Date of service: 01/08/2018 EKG Measurement Heart [id number] <Conclusion> Normal sinus rhythm Possible Left atrial enlargement Borderline ECG
== END 2018-01-08 14:30 | disposition home or self-care (01) ==
LOC: C.ER 12:43
DX: B37.3 Candidiasis of vulva and vagina (principal); K21.9 Gastro-esophageal reflux disease without esophagitis

== ENCOUNTER 2018-08-22 08:55 | Day surgery (SDC) | payer MEDICAID ==
[2018-08-22 09:42] VITALS: TEMP 98; O2SAT 100
--- NOTE | 2018-08-22 11:57 | CP.SDSHP ---
Same Day Surgery H & P - History Proposed Procedure: colonoscopy Pre-Op Diagnosis: screening - Previous Medical/Surgical History Cardiac: Hypertension Endocrine/Metabolic: Diabetes, Obesity - Allergies Allergies: Allergies No Known Allergies Allergy (Verified 01/08/18 12:50) - Physical Exam General Appearance: NAD Vital Signs: Vital Signs 08/22/18 09:16 Temperature 98 F Pulse Rate 91 H Respiratory 19 Rate Blood Pressure 178/93 H O2 Sat by Pulse 100 Oximetry Mental Status: Alert & Oriented x3 Neuro: WNL Heart: WNL Lungs: WNL GI: WNL - {Optional Preform as Required} Abdomen: WNL - Impression Pt. Evaluated Today:Candidate for Anesthesia & Procedure: Yes - Date & Time Date: 08/22/18 Time: 11:57 Short Stay Discharge - Short Stay Discharge Admitting Diagnosis/Reason for Visit: SCREENING Disposition: HOME/ ROUTINE
[2018-08-22] MEDS ORDERED: Lactated Ringer's 1,000 ML IV ONE (12:00)
[2018-08-22] MEDS ORDERED: Propofol 10 mg/ml Inj (20 ML) ONE ×2 (12:07→12:19)
[2018-08-22 13:19] VITALS: BP 155/82; PULSE 79; RESP 14
== END 2018-08-22 17:00 | disposition home or self-care (01) ==
LOC: C.ENDO 08:55
PROVIDERS: ATTEND Internal Medicine Gastroenterology
DX: Z12.11 Encounter for screening for malignant neoplasm of colon (principal); K64.1 Second degree hemorrhoids; E11.9 Type 2 diabetes mellitus without complications; E66.9 Obesity, unspecified; I10 Essential (primary) hypertension
CPT/HCPCS: 45378; 82948; 84703; J2704; J7120

== ENCOUNTER 2018-09-17 08:49 | Outpatient (CLI) | payer MEDICAID | END 2018-09-17 08:50 | disposition home or self-care (01) | LOC: C.USIC 08:49 | DX: R10.9 Unspecified abdominal pain (principal) ==